=== PATIENT | female | born 1960 | race African-American/Black ===

== ENCOUNTER 2017-04-04 13:04 | Inpatient (IN) | payer BC, SELFPAY ==
[2017-04-04 14:12] LABS: #Basophils 0.1 thou/uL (0.0-0.2); #Eosinphils 0.1 thou/uL (0.0-0.7); #Lymphocytes 1.9 thou/uL (1.20-3.40); #Monocytes 0.5 thou/uL (0.11-0.59); #Neutrophils 4.5 thou/uL (1.40-6.50); %Basophils 1.4 % (0.0-1.0); %Eosinophils 0.9 % (0.0-10.0); %Monocytes 6.5 % (0.0-10.0); Hematocrit 40.4 % (36.0-47.0); Mean Platelet Volume 10.1 fL (7.4-10.4); Red Blood Cell (RBC) Count 4.81 mill/uL (4.20-5.40)
[2017-04-04 14:14] LABS: Bilirubin Negative (Negative); Blood, Urine Trace (Negative); Glucose, Urine (Dipstick) >=1000 mg/dL (Negative); Ketone, Urine 40 mg/dL (Negative); Nitrite Negative (Negative); Protein, Urine (Dipstick) Negative (Neg-Trace); Urobilinogen 0.2 mg/dL (0.2-1.0)
[2017-04-04] MEDS ORDERED: Ondansetron HCl/PF 4 MG/2 ML Vial ONE (14:16)
[2017-04-04] MEDS ORDERED: Insulin Regular 300 UNITS/3 ML VIAL ONE ×2 (14:16→16:16)
[2017-04-04 14:20] LABS: Bacteria/HPF None Seen HPF (None Seen); Hyaline Casts/LPF 0-3 HYALINE CAST LPF (0-3 Hyaline); Squamous Epithelial 0-3 HPF (0-3)
[2017-04-04 14:39] LABS: ALT (SGPT) 15 U/L (8-55); AST (SGOT) 10 U/L (5-34); Alkaline Phosphatase 116 U/L (40-150); Anion Gap 23 mmol/L (10-20); BUN (Urea Nitrogen) 23 mg/dL (9.8-20.1); Bilirubin, Total 0.6 mg/dL (0.2-1.2); Calc. Creatinine Clearance 0 mL/min (70-130); Calcium 9.9 mg/dL (7.8-10.44); Carbon Dioxide 14 mmol/L (22-29); Chloride 92 mmol/L (98-107); Estimated GFR-MDRD 25; Globulin 3.9 g/dL (2.4-3.5); Protein, Total 7.6 g/dL (6.0-8.3)
[2017-04-04 14:45] LABS: Troponin I 0.012 ng/mL (< 0.028)
--- NOTE | 2017-04-04 15:08 | RAD ---
TWO VIEW CHEST: COMPARISON: 12/29/14. INDICATION: Chest pain. FINDINGS: No consolidation, effusion, or pneumothorax. Cardiac silhouette is within normal limits of size. IMPRESSION: No focal consolidation. POS: [facility]
[2017-04-04] MEDS ORDERED: Insulin Regular 100 units/100 ml in NS IVPB SCH (16:15)
[2017-04-04] MEDS ORDERED: Dextrose 5 %-0.45 % NaCl 1,000 ML IV PRN (17:50)
[2017-04-04] MEDS ORDERED: Sodium Chloride 0.9% 1,000 ML IV PRN ×4 (17:50)
[2017-04-04] MEDS ORDERED: CCU Electrolyte Replacement 1 EACH IVPB ONE (17:50)
[2017-04-04] MEDS ORDERED: NS 0.9% w/ 20 MEQ KCL 1,000 ML IV PRN ×2 (17:50)
[2017-04-04] MEDS ORDERED: D5 1/2 NS w/20 mEq KCL 1,000 ML IV PRN (17:50)
[2017-04-04] MEDS ORDERED: Acetaminophen 325 MG TAB PO PRN (17:50)
--- NOTE | 2017-04-04 17:53 | HP ---
CHIEF COMPLAINT: Evaluation of right shoulder pain and high blood sugar. 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 She said that she injured her back and shoulder on her job and that is why she came to the hospital and the basic lab work showed that her sodium was 124 and glucose was 852 and creatinine was 2.45 and sh e is being admitted for further evaluation and treatment of uncontrolled diabetes. The patient catarino es any fever, chills, diarrhea, dysuria, nausea, vomiting, or abdominal pain. PAST MEDICAL HISTORY: Significant for diabetes, hypertension and chronic back pain. MEDICATION HISTORY: Please see MAR. PAST SURGICAL HISTORY: She says that she had some surgery longtime, but she is not very clear over that. Patient is a very poor historian. SOCIAL HISTORY: Denies tobacco, alcohol, or drug use. FAMILY HISTORY: Negative for diabetes and hypertension. ALLERGIES: No known drug allergies. REVIEW OF SYSTEMS: Significant for right shoulder pain, back pain, otherwise no fever, no chills, n o headache, no eye pain, no hearing loss, no joint disease, no cough, no chest pain. No diarrhea, d ysuria, or polyuria. No memory or mood changes. No neck pain. PHYSICAL EXAMINATION: VITAL SIGNS: Blood pressure is 128/91, respirations 18, afebrile, pulse is 94. GENERAL: Patient is lying in bed, in no apparent distress. HEENT: Atraumatic, normocephalic. Pupils equally round, react to light. Extraocular movements int act. Mucous membranes moist. NECK: Supple. No JVD. CHEST: Breath sounds heard. No rales or rhonchi. HEART: S1, S2. No murmurs, gallops, or rubs. ABDOMEN: Soft. EXTREMITIES: No cyanosis, clubbing or edema. Distal pulses present. NEUROLOGIC: Alert, awake, oriented. No cranial deficits. No sensorimotor deficits. Examination o f the right shoulder shows a limited range of motion because of pain. LABORATORY DATA: Sodium is 124, glucose is 850, bicarb is 14, creatinine is 2.45, BUN is 25. [facility], which was negative. Troponin is 0.012. UA shows 11-20 wbc cells, no nitrites, positive ketones and glucosuria. WBC count is 7, hemoglobin is 13. Chest x-ray is ne gative. ASSESSMENT AND PLAN: 1. Uncontrolled diabetes with mild metabolic acidosis with anion gap of 18. We will place the amairani ent in IMU, put the patient on insulin drip and IV fluids, and we will transition the patient to sli ding scale insulin as soon as possible. 2. Right shoulder pain. We will do shoulder x-rays and give pain medications for symptomatic contr ol. 3. Hyponatremia. We will check labs frequently and treat with IV fluids. 4. Acute renal failure on chronic kidney disease. We will give IV fluids most probably secondary t o dehydration secondary to polydipsia. The creatinine in 2014 was 1.2. 5. Obesity. 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 Abnormal urine with leukocyte count of 11 to 20 cells with no n itrite positive. We will culture the urine and will empirically treat with Rocephin. 6. Sequential compression devices for deep venous thrombosis prophylaxis. I will follow the labs a nd do the need for.
[2017-04-04] MEDS ORDERED: Potassium Chloride 40 MEQ in Premix Bag 1 BAG IVPB PRN (18:01)
[2017-04-04] MEDS ORDERED: Magnesium 2 GM/NS 0.9% 100 ML 2 GM in Premix Bag 1 BAG IVPB PRN (18:01)
[2017-04-04] MEDS ORDERED: CCU ELECTROLYTE REPLACEMENT PROTOCOL FS PRN (18:01)
[2017-04-04] MEDS ORDERED: Potassium Chloride 40 MEQ in Sodium Chloride 0.9% 250 ML 250 ML IVPB PRN (18:01)
[2017-04-04] MEDS ORDERED: Potassium Phosphate 9 MMOL in Sodium Chloride 0.9% 100 ML IVPB PRN (18:01)
[2017-04-04] MEDS ORDERED: Potassium Phosphate 12 MMOL in Sodium Chloride 0.9% 250 ML 250 ML IV PRN (18:01)
[2017-04-04] MEDS ORDERED: Potassium Phosphate 15 MMOL in Sodium Chloride 0.9% 250 ML 250 ML IV PRN (18:01)
[2017-04-04] MEDS ORDERED: Magnesium Oxide 400 MG TAB PO PRN ×2 (18:01)
[2017-04-04] MEDS ORDERED: Potassium Chloride 20 MEQ TAB PO PRN (18:01)
[2017-04-04 18:25] VITALS: BMI 31.0
[2017-04-04 18:35] LABS: Anion Gap 18 mmol/L (10-20); BUN (Urea Nitrogen) 19 mg/dL (9.8-20.1); Calc. Creatinine Clearance 45 mL/min (70-130); Calcium 9.5 mg/dL (7.8-10.44); Carbon Dioxide 15 mmol/L (22-29); Chloride 104 mmol/L (98-107); Estimated GFR-MDRD 35
[2017-04-04] MEDS: cefTRIAXone\\ROCEPHIN 1 GM in Sodium Chloride 0.9% 100 ML IVPB SCH (19:07)
[2017-04-04] MEDS: Sodium Chloride 0.9% 1,000 ML IV SCH (19:08)
--- NOTE | 2017-04-04 20:17 | RAD ---
RIGHT SHOULDER THREE VIEWS: 04/04/17 HISTORY: 57-year-old female with right shoulder pain. COMPARISON: 10/08/12 FINDINGS: AC joint and glenohumeral joint arthrosis changes. No acute fracture or dislocation of focal bone le neil. IMPRESSION: Degenerative changes right shoulder. No fracture or dislocation. POS: [facility]
[2017-04-04] MEDS: Insulin Regular 300 UNITS/3 ML VIAL SC PRN ×2 (20:22→23:19)
[2017-04-04] MEDS: Insulin Detemir 100 UNITS/ML 15 UNITS in Pre-Filled Syringe 1 EACH SC SCH (21:32)
[2017-04-04 22:09] LABS: Anion Gap 18 mmol/L (10-20); BUN (Urea Nitrogen) 20 mg/dL (9.8-20.1); Calc. Creatinine Clearance 43 mL/min (70-130); Calcium 9.1 mg/dL (7.8-10.44); Carbon Dioxide 15 mmol/L (22-29); Chloride 101 mmol/L (98-107); Estimated GFR-MDRD 33
[2017-04-04] MEDS: Docusate 100 MG CAP PO SCH (23:18)
[2017-04-05] MEDS: HYDROcodone/Acetaminophen 5/325 mg Tablet PO PRN ×4 (00:59→23:31)
[2017-04-05] MEDS: Insulin Regular 300 UNITS/3 ML VIAL SC PRN ×6 (02:59→14:45)
[2017-04-05 05:01] LABS: #Basophils 0.1 thou/uL (0.0-0.2); #Eosinphils 0.1 thou/uL (0.0-0.7); #Lymphocytes 2.3 thou/uL (1.20-3.40); #Monocytes 0.5 thou/uL (0.11-0.59); #Neutrophils 2.7 thou/uL (1.40-6.50); %Basophils 1.7 % (0.0-1.0); %Eosinophils 2.1 % (0.0-10.0); %Lymphocytes 40.7 % (21.0-51.0); Hematocrit 35.3 % (36.0-47.0); Mean Platelet Volume 9.3 fL (7.4-10.4); Red Blood Cell (RBC) Count 4.29 mill/uL (4.20-5.40); White Blood Cell (WBC) Count 5.7 thou/uL (4.8-10.8)
[2017-04-05 05:13] LABS: Anion Gap 12 mmol/L (10-20); BUN (Urea Nitrogen) 15 mg/dL (9.8-20.1); BUN/Creatinine Ratio 9.26; Calc. Creatinine Clearance 51 mL/min (70-130); Calcium 9.2 mg/dL (7.8-10.44); Carbon Dioxide 20 mmol/L (22-29); Chloride 105 mmol/L (98-107); Chloride 106 mmol/L (98-107); Estimated GFR-MDRD 40; Phosphorus 2.1 mg/dL (2.3-4.7)
[2017-04-05] MEDS: Sodium Chloride 0.9% 1,000 ML IV SCH ×3 (05:43→21:00)
[2017-04-05] MEDS: Docusate 100 MG CAP PO SCH ×2 (08:40→20:36)
[2017-04-05] MEDS ORDERED: Insulin Detemir 100 UNITS/ML 15 UNITS in Pre-Filled Syringe 1 EACH SC SCH (09:00)
--- NOTE | 2017-04-05 12:59 | PDOC.PN ---
- Subjective Encounter Start Date: 04/05/17 Encounter Start Time: 12:57 Patient seen and examined. No new complaints. No overnight events - Objective MAR Reviewed: Yes Vital Signs & Weight: Vital Signs (12 hours) Temp Pulse Resp BP Pulse Ox 04/05/17 11:46 97.7 F 83 16 126/69 94 L 04/05/17 08:00 98.3 F 87 18 97 04/05/17 07:55 98.3 F 87 18 130/82 96 04/05/17 03:00 98.3 F 89 18 129/77 99 Weight Weight 181 lb I&O: 04/04/17 04/05/17 04/06/17 06:59 06:59 06:59 Intake Total 2600 480 Output Total 1950 Balance 650 480 Result Diagrams: 04/05/17 04:45 04/05/17 04:45 Additional Labs: Accuchecks 04/05/17 04/05/17 04/05/17 12:01 09:07 05:32 POC Glucose 413 H 316 H 358 H 04/05/17 04/04/17 04/04/17 02:04 23:09 20:11 POC Glucose 367 H 472 H Greater than 550 H* 04/04/17 04/04/17 04/04/17 18:49 17:24 16:23 POC Glucose 464 H 507 H Greater than 550 H* Phys Exam - Physical Examination Constitutional: NAD HEENT: moist MMs Neck: no nodes Respiratory: no rales Cardiovascular: no significant murmur Gastrointestinal: non-tender Musculoskeletal: pulses present rt shoulder - limited rom Neurological: moves all 4 limbs Psychiatric: A&O x 3 Dx/Plan (1) Renal failure (ARF), acute on chronic Code(s): N17.9 - ACUTE KIDNEY FAILURE, UNSPECIFIED; N18.9 - CHRONIC KIDNEY DISEASE, UNSPECIFIED Status: Acute (2) DM (diabetes mellitus) type 2, uncontrolled, with ketoacidosis Code(s): E13.10 - OTH DIABETES MELLITUS WITH KETOACIDOSIS WITHOUT COMA Status : Acute (3) HTN (hypertension) Code(s): I10 - ESSENTIAL (PRIMARY) HYPERTENSION Status: Acute (4) Chronic pain Code(s): G89.29 - OTHER CHRONIC PAIN Status: Acute (5) Obesity (BMI 30.0-34.9) Code(s): E66.9 - OBESITY, UNSPECIFIED Status: Acute (6) Hyponatremia Code(s): E87.1 - HYPO-OSMOLALITY AND HYPONATREMIA Status: Acute - Plan * cont ivf * monitor bmp * start glipizide
[2017-04-05 14:15] LABS: Anion Gap 10 mmol/L (10-20); BUN (Urea Nitrogen) 12 mg/dL (9.8-20.1); Calc. Creatinine Clearance 56 mL/min (70-130); Calcium 8.7 mg/dL (7.8-10.44); Carbon Dioxide 20 mmol/L (22-29); Chloride 106 mmol/L (98-107); Estimated GFR-MDRD 45
[2017-04-05] MEDS: cefTRIAXone\\ROCEPHIN 1 GM in Sodium Chloride 0.9% 100 ML IVPB SCH (18:32)
[2017-04-05] MEDS: Insulin Detemir 100 UNITS/ML 15 UNITS in Pre-Filled Syringe 1 EACH SC SCH (21:00)
[2017-04-06] MEDS: Insulin Regular 300 UNITS/3 ML VIAL SC PRN ×5 (00:48→20:47)
[2017-04-06] MEDS: HYDROcodone/Acetaminophen 5/325 mg Tablet PO PRN ×4 (04:06→20:52)
[2017-04-06] MEDS: Sodium Chloride 0.9% 1,000 ML IV SCH (04:07)
[2017-04-06 04:43] LABS: Anion Gap 10 mmol/L (10-20); BUN (Urea Nitrogen) 11 mg/dL (9.8-20.1); Calc. Creatinine Clearance 63 mL/min (70-130); Calcium 9.1 mg/dL (7.8-10.44); Carbon Dioxide 19 mmol/L (22-29); Chloride 107 mmol/L (98-107); Estimated GFR-MDRD 51; Magnesium 1.7 mg/dL (1.6-2.6); Phosphorus 2.1 mg/dL (2.3-4.7)
[2017-04-06] MEDS ORDERED: Sodium Chloride 0.65% Nasal 44 ML BOT EA NARE PRN (07:16)
[2017-04-06] MEDS ORDERED: Mag-Al 1200 mg/1200 mg/30 ML UDCUP PO PRN (07:16)
[2017-04-06] MEDS ORDERED: Ondansetron HCl/PF 4 MG/2 ML Vial IVP PRN (07:16)
[2017-04-06] MEDS ORDERED: Milk Of Magnesia 30 ML UDCUP PO PRN (07:16)
[2017-04-06] MEDS ORDERED: Eucerin (Mineral Oil/Petrolatum,White) 30 gm Jar TOP PRN (07:16)
[2017-04-06] MEDS ORDERED: Temazepam 15 MG CAP PO PRN (07:16)
[2017-04-06] MEDS ORDERED: Ondansetron ODT 4 MG TAB PO PRN (07:16)
[2017-04-06] MEDS ORDERED: Loperamide HCl 2 MG CAP PO PRN (07:16)
[2017-04-06] MEDS ORDERED: Loratadine 10 MG TAB PO PRN (07:16)
[2017-04-06] MEDS ORDERED: Diabetic Tussin 200 MG/10 ML UDCUP PO PRN (07:16)
[2017-04-06] MEDS ORDERED: Artificial Tears 18 DROP/0.9 ML EA EYE PRN (07:16)
[2017-04-06 07:43] LABS: Hemoglobin A1c 12.2 % (4.0-6.0)
[2017-04-06] MEDS ORDERED: Potassium Phosphate 15 MMOL in Sodium Chloride 0.9% 250 ML 250 ML IVPB SCH (08:00)
[2017-04-06] MEDS: NS 0.9% w/ 20 MEQ KCL 1,000 ML/1,000 ML BAG IV SCH ×2 (08:10→20:44)
[2017-04-06] MEDS: Enoxaparin Sodium 40 MG/0.4 ML SYRINGE SC SCH (08:12)
[2017-04-06] MEDS: Docusate 100 MG CAP PO SCH ×2 (08:12→20:44)
[2017-04-06] MEDS: Famotidine 20 MG TAB PO SCH ×2 (08:13→20:45)
[2017-04-06] MEDS ORDERED: Insulin Detemir 100 UNITS/ML 25 UNITS in Pre-Filled Syringe 1 EACH SC SCH ×2 (09:00→21:00)
--- NOTE | 2017-04-06 11:45 | PDOC.PN ---
- Subjective Encounter Start Date: 04/06/17 Encounter Start Time: 08:00 -: old records requested/rev pt wants to give insulin which can be less expensive - Objective Resuscitation Status: Resuscitation Status FULL:Full Resuscitation MAR Reviewed: Yes Vital Signs & Weight: Vital Signs (12 hours) Temp Pulse Resp BP Pulse Ox 04/06/17 08:00 98.2 F 90 16 95 04/06/17 07:18 98.2 F 90 16 145/89 H 95 04/06/17 04:00 97.7 F 80 20 114/80 95 04/06/17 00:00 97.9 F 85 18 128/81 94 L Weight Weight 181 lb I&O: 04/05/17 04/06/17 04/07/17 06:59 06:59 06:59 Intake Total 2600 4250 400 Output Total 1950 900 Balance 650 3350 400 Result Diagrams: 04/05/17 04:45 04/06/17 04:01 Additional Labs: Accuchecks 04/06/17 04/05/17 04/05/17 00:42 14:42 12:01 POC Glucose 476 H 350 H 413 H Phys Exam - Physical Examination Constitutional: NAD HEENT: PERRLA, moist MMs, sclera anicteric Neck: no JVD, supple Respiratory: no wheezing, no rales, no rhonchi Cardiovascular: RRR, no significant murmur, no rub Gastrointestinal: soft, non-tender, no distention, positive bowel sounds Musculoskeletal: no edema, pulses present Neurological: non-focal, normal sensation, moves all 4 limbs Psychiatric: normal affect, A&O x 3 Skin: no rash, normal turgor Dx/Plan (1) DKA, type 2 Status: Acute Qualifiers: Diabetes mellitus complication detail: without coma (2) Hypokalemia Code(s): E87.6 - HYPOKALEMIA Status: Acute (3) Hyponatremia Code(s): E87.1 - HYPO-OSMOLALITY AND HYPONATREMIA Status: Acute (4) Hypophosphatemia Code(s): E83.39 - OTHER DISORDERS OF PHOSPHORUS METABOLISM Status: Acute (5) Renal failure (ARF), acute on chronic Code(s): N17.9 - ACUTE KIDNEY FAILURE, UNSPECIFIED; N18.9 - CHRONIC KIDNEY DISEASE, UNSPECIFIED Status: Acute (6) Chronic pain Code(s): G89.29 - OTHER CHRONIC PAIN Status: Chronic (7) DM (diabetes mellitus) type 2, uncontrolled, with ketoacidosis Code(s): E13.10 - OTH DIABETES MELLITUS WITH KETOACIDOSIS WITHOUT COMA Status : Chronic (8) HTN (hypertension) Code(s): I10 - ESSENTIAL (PRIMARY) HYPERTENSION Status: Chronic (9) Obesity (BMI 30.0-34.9) Code(s): E66.9 - OBESITY, UNSPECIFIED Status: Chronic - Plan cont current plan of care * will give potassium phosphate * continue IVF at reduced rate * will change to insulin 70/30 and today will adjust insulin dose * medication reviewed as below * medically stable with current treatment * symptomatic treatment * expecting discharge tomorrow * social work to assist medication. Review of Systems - Review of Systems ENT: negative: Ear Pain, Ear Discharge, Nose Pain, Nose Discharge, Nose Congestion, Mouth Pain, Mouth Swelling, Throat Pain, Throat Swelling, Other Respiratory: negative: Cough, Dry, Shortness of Breath, Hemoptysis, SOB with Excertion, Pleuritic Pain, Sputum, Wheezing Cardiovascular: negative: Chest Pain, Palpitations, Orthopnea, Paroxysmal Noc. Dyspnea, Edema, Light Headedness, Other Gastrointestinal: negative: Nausea, Vomiting, Abdominal Pain, Diarrhea, Constipation, Melena, Hematochezia, Other Genitourinary: negative: Dysuria, Frequency, Incontinence, Hematuria, Retention , Other Musculoskeletal: negative: Neck Pain, Shoulder Pain, Arm Pain, Back Pain, Hand Pain, Leg Pain, Foot Pain, Other - Medications/Allergies Allergies/Adverse Reactions: Allergies Allergy/AdvReac Type Severity Reaction Status Date / Time No Known Allergies Allergy Verified 10/28/14 03:03 Medications: Current Medications Acetaminophen (Tylenol) 650 mg PO Q4H PRN PRN Reason: Headache/Fever or Pain Hydrocodone Bitart/Acetaminophen ([place] 5/325) 1 tab PO Q4H PRN PRN Reason: Moderate Pain (4-6) Last Admin: 04/06/17 09:50 Dose: 1 tab Al Hydroxide/Mg Hydroxide (Maalox) 15 ml PO Q4H PRN PRN Reason: Heartburn or Indigestion Artificial Tears (Tears Naturale) 0 drop EA EYE PRN PRN PRN Reason: Dry Eyes Docusate Sodium (Colace) 100 mg PO BID NAYELI Last Admin: 04/06/17 08:12 Dose: Not Given Enoxaparin Sodium (Lovenox) 40 mg SC 0900 [facility] Last Admin: 04/06/17 08:12 Dose: 40 mg Famotidine (Pepcid) 20 mg PO BID [facility] Last Admin: 04/06/17 08:13 Dose: 20 mg Glipizide (Glucotrol Xl) 5 mg PO [facility] Last Admin: 04/06/17 08:11 Dose: 5 mg Guaifenesin (Robitussin Sf) 200 mg PO Q4H PRN PRN Reason: Cough Hydralazine HCl (Apresoline) 10 mg SLOW IVP Q4H PRN PRN Reason: Systolic BP > 180 Ceftriaxone Sodium 1 gm/ (Sodium Chloride) 100 mls @ 200 mls/hr IVPB Q24HR [facility] Stop: 04/07/17 18:01 Last Admin: 04/05/17 18:32 Dose: 100 mls Sodium Chloride (Normal Saline 0.9%) 1,000 mls @ 100 mls/hr IV .Q10H [facility] Stop: 04/06/17 18:31 Last Admin: 04/06/17 04:07 Dose: 1,000 mls Potassium Phosphate 15 mmol/ (Sodium Chloride) 255 mls @ 62.5 mls/hr IVPB 0800 [facility] Stop: 04/06/17 12:05 Last Admin: 04/06/17 09:50 Dose: 255 mls Potassium Chloride/Sodium Chloride (Ns 0.9% W/ 20 Meq Kcl) 1,000 ml in 1,000 mls @ 75 mls/hr IV .[id number] [facility] Last Admin: 04/06/17 08:10 Dose: 1,000 mls Insulin Human Isoph/Insulin Regular (Humulin 70/30) [facility] [place] [facility] [place] Human Isoph/Insulin Regular (Humulin 70/30) 25 units SC [facility] Insulin Human Regular (Humulin R) 0 units SC .AGGRESSIVE SLIDING PRN; Protocol PRN Reason: AGGRESSIVE SLIDING SCALE Last Admin: 04/06/17 05:16 Dose: 13 units Insulin Human Regular (Humulin R) 0 units SC .BEDTIME SLIDING SC PRN; Protocol PRN Reason: BEDTIME SLIDING SCALE Last Admin: 04/06/17 00:48 Dose: 5 units Loperamide HCl (Imodium) 2 mg PO PRN PRN PRN Reason: Diarrhea/Loose Stools Loratadine (Claritin) 10 mg PO DAILYPRN PRN PRN Reason: Sinus Symptoms Magnesium Hydroxide (Milk Of Magnesium) 30 ml PO DAILYPRN PRN PRN Reason: Constipation Mineral Oil/White Petrolatum (Eucerin Cream) 0 gm TOP BIDPRN PRN PRN Reason: Dry Skin Ondansetron HCl (Zofran Odt) 4 mg PO Q6H PRN PRN Reason: Nausea/Vomiting Ondansetron HCl (Zofran) 4 mg IVP Q6H PRN PRN Reason: Nausea/Vomiting Sodium Chloride ([place] Nasal [place] 0.65%) 0 ml EA NARE QIDPRN PRN PRN Reason: Nasal Congestion Temazepam (Restoril) 15 mg PO HSPRN PRN PRN Reason: Insomnia
[2017-04-06] MEDS: cefTRIAXone\\ROCEPHIN 1 GM in Sodium Chloride 0.9% 100 ML IVPB SCH (17:52)
[2017-04-06] MEDS ORDERED: Insulin NPH/Reg Insulin Hm 300 UNITS/3 ML VIAL SC SCH (21:00)
[2017-04-07 04:48] LABS: Anion Gap 11 mmol/L (10-20); BUN (Urea Nitrogen) 11 mg/dL (9.8-20.1); Calc. Creatinine Clearance 66 mL/min (70-130); Calcium 8.9 mg/dL (7.8-10.44); Carbon Dioxide 22 mmol/L (22-29); Chloride 107 mmol/L (98-107); Estimated GFR-MDRD 54; Magnesium 2.1 mg/dL (1.6-2.6); Phosphorus 2.3 mg/dL (2.3-4.7)
[2017-04-07] MEDS: NS 0.9% w/ 20 MEQ KCL 1,000 ML/1,000 ML BAG IV SCH ×2 (05:25→08:20)
[2017-04-07] MEDS: Insulin Regular 300 UNITS/3 ML VIAL SC PRN (05:27)
[2017-04-07 07:43] VITALS: BP 119/80; TEMP 98
[2017-04-07] MEDS: Enoxaparin Sodium 40 MG/0.4 ML SYRINGE SC SCH (08:13)
[2017-04-07] MEDS: Famotidine 20 MG TAB PO SCH (08:13)
[2017-04-07] MEDS: Docusate 100 MG CAP PO SCH (08:13)
[2017-04-07] MEDS ORDERED: Insulin NPH/Reg Insulin Hm 300 UNITS/3 ML VIAL SC SCH ×3 (09:00→21:00)
--- NOTE | 2017-04-07 10:28 | DIS ---
DATE OF ADMISSION: 04/04/2017 DATE OF DISCHARGE: 04/07/2017 PRIMARY CARE PHYSICIAN: Oriana Call admission. DISCHARGE DISPOSITION: Home. PRIMARY DISCHARGE DIAGNOSES: 1. Diabetes ketoacidosis, type 2. 2. Abnormal electrolytes with hypokalemia, hypophosphatemia, hyponatremia, corrected. 3. Acute on chronic kidney failure. SECONDARY DISCHARGE DIAGNOSES: 1. Diabetes type 2. 2. Obesity with BMI 31. 3. Hypertension. 4. Chronic pain disorder. PRIMARY PROCEDURE/OPERATION: None. RADIOLOGICAL INVESTIGATION: Chest x-ray was normal. Shoulder x-ray showed osteoarthritis. SIGNIFICANT LABORATORY DATA: Hemoglobin 12.0, creatinine 1.25. Electrolytes normal. TSH 1.43, LDL 113. Urinalysis: Leukocyte esterase small, serum ketone 0.57. Urine culture grew yeast. DISCHARGE MEDICATIONS: Aspirin 81 mg p.o. daily; Novolin 70/30, 35 units subcu b.i.d.; lovastatin 2 0 mg p.o. daily; glyburide 5 mg p.o. b.i.d.; metformin 500 mg p.o. b.i.d. CONTRAINDICATIONS: None. CODE STATUS: FULL CODE. INPATIENT CONSULTANTS: None. ALLERGIES: No known drug allergy. DISCHARGE PLAN: Post hospital, the patient will follow up with primary care physician in 1 week. HOSPITAL COURSE: A 57-year-old -[place] female with a history of diabetes type 2 who mainly came to emergency room for complaint of right shoulder pain and she was having very high blood suga r at home. This patient's right shoulder pain was consistent with musculoskeletal etiology and her shoulder x-ray showed osteoarthritis. Routine workup in the emergency room showed hyperglycemia associated with acute kidney failure, hypo natremia, hypokalemia, and hypophosphatemia. The patient also had DKA. All this problem was related with her noncompliance with the treatment. The patient was admitted in IMCU. She was treated with diabetic ketoacidosis protocol treatment and upon improvement, the amairani ent was transferred to medical floor. This patient cannot afford any expensive medication and that is why we tried to give her [employer] $4 prescription plan. All new medication prescription given to her pharmacy. The patient is seen and examined at bedside today. Today, we provided education about diet, diabetes as well as compliance with medication treatment. All questions answered to her. PHYSICAL EXAMINATION: VITAL SIGNS: Currently, temperature 98.0, pulse 80, respiratory rate 20, saturation 95%, blood pres sure 119/80, weight 181 pounds. GENERAL: The patient is currently alert, awake, no acute distress. HEAD: Normocephalic, atraumatic. LUNGS: Clear to auscultation without any rhonchi or rales. CARDIAC: S1, S2 regular without any murmur. ABDOMEN: Soft and benign without any tenderness. EXTREMITIES: No edema. NEUROLOGIC: Nonfocal examination. Overall, this patient is medically stable for discharge today.
== END 2017-04-07 10:56 | disposition home or self-care (01) | DRG 637 ==
LOC: ERS 13:04 → IMCU/EMU 16:14 → T4-A 04-05 16:05
PROVIDERS: ADMIT Internal Medicine; ATTEND Internal Medicine
DX: E11.65 Type 2 diabetes mellitus with hyperglycemia (principal); E11.10 Type 2 diabetes mellitus with ketoacidosis without coma; N17.9 Acute kidney failure, unspecified; E87.2 Acidosis; E87.1 Hypo-osmolality and hyponatremia; E83.39 Other disorders of phosphorus metabolism; G89.29 Other chronic pain; M54.9 Dorsalgia, unspecified; E86.0 Dehydration; E66.9 Obesity, unspecified; Z68.31 Body mass index [BMI] 31.0-31.9, adult; E87.6 Hypokalemia; Z79.82 Long term (current) use of aspirin; Z79.4 Long term (current) use of insulin; M19.011 Primary osteoarthritis, right shoulder; Z91.19 Patient's noncompliance with other medical treatment and regimen; E11.22 Type 2 diabetes mellitus with diabetic chronic kidney disease; I12.9 Hypertensive chronic kidney disease with stage 1 through stage 4 chronic kidney disease, or unspecified chronic kidney disease; N18.9 Chronic kidney disease, unspecified
CPT/HCPCS: 36415; 36416; 71020; 80053; 80061; 80069; 81003; 81015; 82010; 82553; 83036; 83735; 84443; 84484; 85025; 87086; 93005; 96361; 96365; 96375; 96376; G8978-GP-CH; G8979-GP-CH; G8980-GP-CH; J0696; J1650; J1815; J2270; J2405; J7050

== ENCOUNTER 2017-07-09 09:22 | Inpatient (IN) | payer SELFPAY ==
[2017-07-09 09:55] LABS: #Lymphocytes 1.6 thou/uL (1.20-3.40); #Monocytes 0.5 thou/uL (0.11-0.59); #Neutrophils 6.1 thou/uL (1.40-6.50); %Basophils 0.5 % (0.0-1.0); %Eosinophils 0.2 % (0.0-10.0); %Lymphocytes 19.2 % (21.0-51.0); %Monocytes 6.4 % (0.0-10.0); %Neutrophils 73.7 % (42.0-75.0); Hemoglobin 13.1 g/dL (12.0-16.0); Mean Corpuscular HGB CONC 33.3 g/dL (32.0-36.0); Mean Corpuscular Hemoglobin 28.8 pg (27.0-31.0); Mean Corpuscular Volume 86.6 fl (81.0-99.0); Mean Platelet Volume 9.9 fL (7.4-10.4); Platelet Count 179 thou/uL (130-400); RBC Distribution Width 12.5 % (11.5-14.5); Red Blood Cell (RBC) Count 4.56 mill/uL (4.20-5.40); White Blood Cell (WBC) Count 8.2 thou/uL (4.8-10.8)
[2017-07-09 10:21] LABS: ALT (SGPT) 11 U/L (8-55); AST (SGOT) 7 U/L (5-34); Albumin 3.9 g/dL (3.5-5.0); Alkaline Phosphatase 121 U/L (40-150); Anion Gap 26 mmol/L (10-20); BUN (Urea Nitrogen) 18 mg/dL (9.8-20.1); Bilirubin, Total 0.4 mg/dL (0.2-1.2); Calc. Creatinine Clearance 0 mL/min (70-130); Calcium 10.1 mg/dL (7.8-10.44); Chloride 100 mmol/L (98-107); Estimated GFR-MDRD 26; Potassium 4.5 mmol/L (3.5-5.1); Protein, Total 7.9 g/dL (6.0-8.3); Sodium 130 mmol/L (136-145)
[2017-07-09] MEDS ORDERED: Ondansetron HCl/PF 4 MG/2 ML Vial ONE (10:21)
[2017-07-09 10:23] LABS: Bilirubin Negative (Negative); Blood, Urine Trace (Negative); Clarity CLEAR (Clear); Glucose, Urine (Dipstick) >=1000 mg/dL (Negative); Leukocyte Small (Negative); Nitrite Negative (Negative); Protein, Urine (Dipstick) Trace mg/dL (Neg-Trace); Specific Gravity, Urine 1.027 (1.002-1.036); Urobilinogen 0.2 mg/dL (0.2-1.0); pH, Urine 5.5 (5.0-9.0)
[2017-07-09 10:27] LABS: Bacteria/HPF Rare-Few HPF (None Seen); Hyaline Casts/LPF 0-3 HYALINE CAST LPF (0-3 Hyaline); RBC/HPF 0-3 HPF (0-3); Squamous Epithelial 0-3 HPF (0-3)
[2017-07-09 10:28] LABS: Carbon Dioxide 9 mmol/L (22-29); Glucose 732 mg/dL (70-105)
[2017-07-09 10:39] LABS: Lactic Acid 1.5 mmol/L (0.5-2.2)
[2017-07-09] MEDS ORDERED: Morphine 4 MG/ML VIAL ONE (10:43)
[2017-07-09 11:19] LABS: Magnesium 2.1 mg/dL (1.6-2.6); Phosphorus 3.6 mg/dL (2.3-4.7)
[2017-07-09] MEDS ORDERED: Ondansetron HCl/PF 4 MG/2 ML Vial IVP PRN (12:59)
[2017-07-09] MEDS ORDERED: Zolpidem Tartrate 5 MG TAB PO PRN (12:59)
[2017-07-09] MEDS ORDERED: Acetaminophen 500 MG TAB ONE (13:02)
[2017-07-09] MEDS ORDERED: Sodium Chloride 0.9% 1,000 ML IV PRN ×4 (13:06)
[2017-07-09] MEDS ORDERED: Dextrose 5 %-0.45 % NaCl 1,000 ML IV PRN (13:06)
[2017-07-09] MEDS ORDERED: Dextrose 50% Abboject 50 ML SYRINGE SLOW IVP PRN (13:06)
[2017-07-09] MEDS ORDERED: NS 0.9% w/ 20 MEQ KCL 1,000 ML/1,000 ML BAG IV PRN ×2 (13:06)
[2017-07-09] MEDS ORDERED: Dextrose 5% in Water 1,000 ML IV PRN (13:06)
[2017-07-09] MEDS ORDERED: Insulin Regular 300 UNITS/3 ML VIAL IVP SCH (13:15)
[2017-07-09] MEDS ORDERED: ADD ELECTROLYTE REPLACEMENT SET TO PROFILE FS SCH (13:15)
--- NOTE | 2017-07-09 13:33 | HP ---
DATE OF ADMISSION: 07/09/2017 CHIEF COMPLAINT: Feeling weak and dizzy. HISTORY OF PRESENT ILLNESS: This is a 57-year-old female, who is being evaluated in the emergency ro om due to severe dizziness and significant elevation in blood sugars. Patient states that she appare ntly was taking insulin, but ran out of it and was unable to obtain any. The patient states that she started to feel significant back pain, weakness, dizziness, and presented to the ER and was found to be in DKA. The patient was treated appropriately in the emergency room. At this point in time, mague ng admitted to the hospital for insulin drip purposes and DKA protocol without treatment. The patien t states that this has happened to her a few times before when she misses her insulin. Otherwise, de nies any other associated complaints or illnesses. Denies any other aggravating or alleviating facto rs. ALLERGIES: No known drug allergies. PAST MEDICAL HISTORY: Inclusive of diabetes and hypertension PAST SURGICAL HISTORY: None. FAMILY HISTORY: Father had diabetes. Mother had hypertension. SOCIAL HISTORY: Denies alcohol, denies drugs, denies smoking. REVIEW OF SYSTEMS: Twelve-point review of systems performed. Pertinent positives in the HPI, otherw ise negative. HOME MEDICATIONS: Include lisinopril 10 mg daily, insulin 25 units twice a day, metformin 1000 mg ta blet daily. PHYSICAL EXAMINATION: VITAL SIGNS: Blood pressure 123/73, pulse of 99, respiratory rate of 20, O2 saturation 98, temperatu re of 98. GENERAL: The patient appears to be very weak and in mild distress. HEENT: Pupils equal, round, and reactive to light and accommodation. Normocephalic, atraumatic head . Room does smell fruity odor similar to acetone. Oral cavity appears dry and pink. NECK: Supple, nontender, mobile thyroid. PULMONARY EXAM: Clear to auscultation bilaterally, aerating well. CARDIOVASCULAR EXAM: Regular rate and rhythm. S1 and S2. No murmurs, rubs, or gallops appreciated. ABDOMINAL EXAM: Rotund, positive bowel sounds, soft, nontender. EXTREMITIES: A 2+ peripheral pulses, and moving all extremities. SKIN EXAM: Appears dry. NEUROLOGIC: Alert and oriented x3, following all commands, moving all extremities. LABORATORY WORK: CBC normal. BMP, sodium 130, potassium 4.5, chloride 100, anion gap of 26, creatin ine of 2.32, and a glucose of 732. Urinalysis reveals glucose 1000 and beta hydroxybutyrate is 9.3 m illimoles per liter. ASSESSMENT AND PLAN: 1. Diabetic ketoacidosis secondary to missed insulin dosing. 2. Hypertension. 3. Obesity. 4. Hyperlipidemia. 5. Anion gap acidosis. 6. Acute kidney injury on chronic kidney disease. At this point in time, we will admit the patient to the hospital, initiate insulin, diabetic ketoacidosis protocol. 7. Acute kidney injury, likely secondary to dehydration. We will monitor for any issues and conditi on. 8. Pseudohyponatremia present. Sodium levels appropriate when corrected for high glucose levels. 9. Acidosis, likely to be resolved after resolution of diabetic ketoacidosis. At this point in time, we will admit the patient and monitor closely. Diabetic ketoacidosis protocol initiated appropriately in the ER and we will continue. Obtain blood cultures. P.r.n. medications as well. Case and plan discussed with the patient at length. She understands and agrees with this p idalia.
[2017-07-09 15:19] LABS: Osmolality, Serum 336 mOsm/kg (280-295)
[2017-07-09 15:54] LABS: Anion Gap 21 mmol/L (10-20); BUN (Urea Nitrogen) 13 mg/dL (9.8-20.1); Calc. Creatinine Clearance 0 mL/min (70-130); Calcium 9.3 mg/dL (7.8-10.44); Chloride 114 mmol/L (98-107); Estimated GFR-MDRD 38; Glucose 392 mg/dL (70-105); Potassium 4.8 mmol/L (3.5-5.1); Sodium 139 mmol/L (136-145)
[2017-07-09 15:59] LABS: CO2 Tension 32.4 mmHg (35.0-45.0); Calcium, Ionized 1.4 mmol/L (1.12-1.30); Hematocrit-ABG 36.6 % (36.0-47.0); Hemoglobin (Hb) 11.8 g/dL (12.0-16.0); O2 Tension (PaO2) 98.6 mmHg (80.0-100.0)
[2017-07-09 16:08] LABS: Carbon Dioxide 9 mmol/L (22-29)
[2017-07-09 16:12] LABS: Analyzer IN Cardio ER; Puncture Site RRA; pH, Arterial 7.19 (7.35-7.45)
[2017-07-09] MEDS ORDERED: Sodium Bicarb 50 MEQ/50 ML Abboject 8.4% SYRINGE ONE (16:17)
[2017-07-09] MEDS ORDERED: Sodium Bicarb 50 MEQ/50 ML Abboject 8.4% SYRINGE IVP SCH (16:45)
[2017-07-09 17:10] VITALS: BMI 32.4
[2017-07-09 20:34] LABS: Anion Gap 13 mmol/L (10-20); BUN (Urea Nitrogen) 10 mg/dL (9.8-20.1); Calc. Creatinine Clearance 57 mL/min (70-130); Calcium 9.5 mg/dL (7.8-10.44); Carbon Dioxide 19 mmol/L (22-29); Chloride 115 mmol/L (98-107); Estimated GFR-MDRD 43; Glucose 222 mg/dL (70-105); Potassium 3.6 mmol/L (3.5-5.1); Sodium 143 mmol/L (136-145)
[2017-07-09] MEDS ORDERED: Lovastatin 20 MG TAB PO SCH (21:00)
[2017-07-09] MEDS ORDERED: CCU ELECTROLYTE REPLACEMENT PROTOCOL FS PRN (21:08)
[2017-07-09] MEDS ORDERED: Potassium Chloride 40 MEQ in Premix Bag 1 BAG IVPB PRN (21:08)
[2017-07-09] MEDS ORDERED: Potassium Phosphate 12 MMOL in Sodium Chloride 0.9% 250 ML 250 ML IV PRN (21:08)
[2017-07-09] MEDS ORDERED: Potassium Phosphate 9 MMOL in Sodium Chloride 0.9% 100 ML IVPB PRN (21:08)
[2017-07-09] MEDS ORDERED: Potassium Chloride 20 MEQ TAB PO PRN (21:08)
[2017-07-09] MEDS ORDERED: Potassium Chloride 40 MEQ in Sodium Chloride 0.9% 250 ML 250 ML IVPB PRN (21:08)
[2017-07-09] MEDS ORDERED: Potassium Phosphate 15 MMOL in Sodium Chloride 0.9% 250 ML 250 ML IV PRN (21:08)
[2017-07-09] MEDS ORDERED: Magnesium 2 GM/NS 0.9% 100 ML 2 GM in Premix Bag 1 BAG IVPB PRN (21:08)
[2017-07-09] MEDS ORDERED: Magnesium Oxide 400 MG TAB PO PRN ×2 (21:08)
[2017-07-09 23:26] LABS: Anion Gap 14 mmol/L (10-20); BUN (Urea Nitrogen) 9 mg/dL (9.8-20.1); Calc. Creatinine Clearance 53 mL/min (70-130); Calcium 9.6 mg/dL (7.8-10.44); Carbon Dioxide 19 mmol/L (22-29); Chloride 112 mmol/L (98-107); Estimated GFR-MDRD 40; Glucose 271 mg/dL (70-105); Potassium 3.5 mmol/L (3.5-5.1); Sodium 141 mmol/L (136-145)
[2017-07-10] MEDS: Acetaminophen 500 MG TAB PO PRN ×2 (00:10→04:20)
[2017-07-10] MEDS: D5 1/2 NS w/20 mEq KCL 1,000 ML IV PRN ×4 (00:11→12:34)
[2017-07-10 06:05] LABS: Anion Gap 19 mmol/L (10-20); BUN (Urea Nitrogen) 7 mg/dL (9.8-20.1); Calc. Creatinine Clearance 56 mL/min (70-130); Calcium 9.8 mg/dL (7.8-10.44); Carbon Dioxide 12 mmol/L (22-29); Chloride 110 mmol/L (98-107); Estimated GFR-MDRD 42; Glucose 379 mg/dL (70-105); Potassium 4.2 mmol/L (3.5-5.1); Sodium 137 mmol/L (136-145)
[2017-07-10] MEDS ORDERED: Aspirin 81 mg Enteric Coated Tablet PO SCH (09:00)
[2017-07-10] MEDS ORDERED: FLU VACC QS2017-18 36 mo. & older 0.5 ML SYRINGE IM ONE (09:00)
[2017-07-10] MEDS ORDERED: Enoxaparin Sodium 30 MG/0.3 ML SYRINGE SC SCH (09:00)
[2017-07-10 11:55] LABS: Phosphorus 1.5 mg/dL (2.3-4.7)
[2017-07-10] MEDS ORDERED: Artificial Tears 18 DROP/0.9 ML EA EYE PRN (12:37)
[2017-07-10] MEDS ORDERED: Acetaminophen 325 MG TAB PO PRN (12:37)
[2017-07-10] MEDS ORDERED: Diabetic Tussin 200 MG/10 ML UDCUP PO PRN (12:37)
[2017-07-10] MEDS ORDERED: Dextrose 5% in Water 1,000 ML IV PRN (12:37)
[2017-07-10] MEDS ORDERED: HYDROcodone/Acetaminophen 5/325 mg Tablet PO PRN (12:37)
[2017-07-10] MEDS ORDERED: Sodium Chloride 0.65% Nasal 44 ML BOT EA NARE PRN (12:37)
[2017-07-10] MEDS ORDERED: Ondansetron ODT 4 MG TAB PO PRN (12:37)
[2017-07-10] MEDS ORDERED: Ondansetron HCl/PF 4 MG/2 ML Vial IVP PRN (12:37)
[2017-07-10] MEDS ORDERED: Eucerin (Mineral Oil/Petrolatum,White) 30 gm Jar TOP PRN (12:37)
[2017-07-10] MEDS ORDERED: Insulin Regular 300 UNITS/3 ML VIAL SC PRN (12:37)
[2017-07-10] MEDS ORDERED: Senokot 8.6 MG TAB PO PRN (12:37)
[2017-07-10] MEDS ORDERED: Zolpidem Tartrate 5 MG TAB PO PRN (12:37)
[2017-07-10] MEDS ORDERED: Chloraseptic Spray 180 ml Bottle PO PRN (12:37)
[2017-07-10] MEDS ORDERED: Bisacodyl 10 MG SUPP PR PRN (12:37)
[2017-07-10] MEDS ORDERED: Loperamide HCl 2 MG CAP PO PRN (12:37)
[2017-07-10] MEDS ORDERED: Nitroglycerin 0.4 MG TAB (25 Tab Bottle) SL PRN (12:37)
[2017-07-10] MEDS ORDERED: Milk Of Magnesia 30 ML UDCUP PO PRN (12:37)
[2017-07-10] MEDS ORDERED: Mag-Al 1200 mg/1200 mg/30 ML UDCUP PO PRN (12:37)
[2017-07-10] MEDS ORDERED: hydrALAZINE 20 MG/ML VIAL SLOW IVP PRN (12:37)
[2017-07-10] MEDS ORDERED: Dextrose 50% Abboject 50 ML SYRINGE SLOW IVP PRN (12:37)
[2017-07-10] MEDS ORDERED: Loratadine 10 MG TAB PO PRN (12:37)
--- NOTE | 2017-07-10 12:40 | PDOC.PN ---
- Subjective Encounter Start Date: 07/10/17 Encounter Start Time: 09:00 -: old records requested/rev Patient seen and examined. No new complaints. No overnight events - Objective MAR Reviewed: Yes Vital Signs & Weight: Vital Signs (12 hours) Temp Pulse Resp BP BP Pulse Ox 07/10/17 11:17 98.3 F 86 18 143/96 H 98 07/10/17 08:20 97.0 F L 85 18 98 07/10/17 07:46 97.0 F L 85 18 147/98 H 98 07/10/17 03:30 97.8 F 85 18 147/85 H 100 I&O: 07/09/17 07/10/17 07/11/17 06:59 06:59 06:59 Intake Total 3100 Balance 3100 Result Diagrams: 07/09/17 09:46 07/10/17 04:37 Additional Labs: Accuchecks 07/10/17 07/10/17 07/10/17 11:16 10:05 09:09 POC Glucose 249 H 273 H 275 H 07/10/17 07/10/17 07/10/17 08:22 07:07 06:04 POC Glucose 300 H 309 H 333 H 07/10/17 07/10/17 07/10/17 05:04 04:05 03:06 POC Glucose 325 H 383 H 277 H 07/10/17 07/10/17 07/10/17 02:05 01:12 00:14 POC Glucose 275 H 273 H 263 H 07/09/17 07/09/17 07/09/17 23:09 21:58 20:46 POC Glucose 254 H 238 H 218 H 07/09/17 07/09/17 07/09/17 19:32 18:22 17:06 POC Glucose 206 H 271 H 308 H 07/09/17 07/09/17 07/09/17 16:03 15:02 13:43 POC Glucose 330 H 401 H 433 H 07/09/17 12:53 POC Glucose 519 H EKG Reviewed by me: Yes Phys Exam - Physical Examination Constitutional: NAD HEENT: PERRLA, moist MMs, sclera anicteric Neck: no JVD, supple Respiratory: no wheezing, no rales, no rhonchi Cardiovascular: RRR, no significant murmur, no rub Gastrointestinal: soft, non-tender, no distention, positive bowel sounds Musculoskeletal: no edema, pulses present Neurological: non-focal, normal sensation, moves all 4 limbs Lymphatic: no nodes Psychiatric: normal affect, A&O x 3 Skin: no rash, normal turgor Dx/Plan (1) Acute worsening of stage 3 chronic kidney disease Code(s): N18.3 - CHRONIC KIDNEY DISEASE, STAGE 3 (MODERATE) Status: Acute (2) DKA, type 2 Status: Acute (3) Hyponatremia Code(s): E87.1 - HYPO-OSMOLALITY AND HYPONATREMIA Status: Acute (4) Chronic pain Code(s): G89.29 - OTHER CHRONIC PAIN Status: Chronic (5) HTN (hypertension) Code(s): I10 - ESSENTIAL (PRIMARY) HYPERTENSION Status: Chronic (6) Obesity (BMI 30.0-34.9) Code(s): E66.9 - OBESITY, UNSPECIFIED Status: Chronic - Plan cont current plan of care * now will start her home meds and home dos eof insulin * gradually will turn off insulin drip * start diet * repeat labs tomorrow * medication reviewed as below * symptomatic treatment * transfer to medical. Review of Systems - Review of Systems ENT: negative: Ear Pain, Ear Discharge, Nose Pain, Nose Discharge, Nose Congestion, Mouth Pain, Mouth Swelling, Throat Pain, Throat Swelling, Other Respiratory: negative: Cough, Dry, Shortness of Breath, Hemoptysis, SOB with Excertion, Pleuritic Pain, Sputum, Wheezing Cardiovascular: negative: chest pain, palpitations, orthopnea, paroxysmal nocturnal dyspnea, edema, light headedness, other Gastrointestinal: negative: Nausea, Vomiting, Abdominal Pain, Diarrhea, Constipation, Melena, Hematochezia, Other Genitourinary: negative: Dysuria, Frequency, Incontinence, Hematuria, Retention , Other Musculoskeletal: negative: Neck Pain, Shoulder Pain, Arm Pain, Back Pain, Hand Pain, Leg Pain, Foot Pain, Other Skin: negative: Rash, Lesions, Mars, Bruising, Other - Medications/Allergies Allergies/Adverse Reactions: Allergies Allergy/AdvReac Type Severity Reaction Status Date / Time No Known Allergies Allergy Verified 10/28/14 03:03 Medications: Current Medications Acetaminophen (Tylenol) 650 mg PO Q4H PRN PRN Reason: Headache/Fever or Mild Pain Hydrocodone Bitart/Acetaminophen ([place] 5/325) 1 tab PO Q4H PRN PRN Reason: Moderate Pain (4-6) Al Hydroxide/Mg Hydroxide (Maalox) 15 ml PO Q4H PRN PRN Reason: Heartburn or Indigestion Artificial Tears (Tears Naturale) 0 drop EA EYE PRN PRN PRN Reason: Dry Eyes Bisacodyl (Dulcolax) 10 mg GA DAILYPRN PRN PRN Reason: Constipation Dextrose/Water (Dextrose 50%) 25 gm SLOW IVP PRN PRN PRN Reason: Hypoglycemia Famotidine (Pepcid) 20 mg PO BID [facility] Glucagon (Glucagon) 1 mg IM PRN PRN PRN Reason: Hypoglycemia Glyburide (Diabeta) 5 mg PO BID-AC [facility] Guaifenesin (Robitussin Sf) 200 mg PO Q4H PRN PRN Reason: Cough Hydralazine HCl (Apresoline) 10 mg SLOW IVP Q4H PRN PRN Reason: Systolic BP > 180 Dextrose/Water (D5w) 1,000 mls @ 0 mls/hr IV .Q0M PRN; As Directed PRN Reason: Hypoglycemia Insulin Human Isoph/Insulin Regular (Humulin 70/30) 35 units SC BID NAYELI Insulin Human Regular (Humulin R) 0 units SC .AGGRESSIVE SLIDING PRN PRN Reason: Aggressive Sliding Scale Insulin Human Regular (Humulin R) 0 units SC .BEDTIME SLIDING SC PRN PRN Reason: Bedtime Correctional Scale Loperamide HCl (Imodium) 2 mg PO PRN PRN PRN Reason: Diarrhea/Loose Stools Loratadine (Claritin) 10 mg PO DAILYPRN PRN PRN Reason: Sinus Symptoms Magnesium Hydroxide (Milk Of Magnesium) 30 ml PO DAILYPRN PRN PRN Reason: Constipation Metformin HCl (Glucophage) 500 mg PO BID-WM [facility] Mineral Oil/White Petrolatum (Eucerin Cream) 0 gm TOP BIDPRN PRN PRN Reason: Dry Skin Nitroglycerin (Nitrostat) 0.4 mg SL Q5MIN PRN PRN Reason: Chest Pain Ondansetron HCl (Zofran Odt) 4 mg PO Q6H PRN PRN Reason: Nausea/Vomiting Ondansetron HCl (Zofran) 4 mg IVP Q6H PRN PRN Reason: Nausea/Vomiting Phenol (Chloraseptic [place] 180 Ml Bot) 0 ml PO PRN PRN PRN Reason: Sore Throat Senna (Senokot) 2 tab PO HSPRN PRN PRN Reason: Constipation Sodium Chloride ([place] Nasal [place] 0.65%) 0 ml EA NARE QIDPRN PRN PRN Reason: Nasal Congestion Zolpidem Tartrate (Ambien) 5 mg PO HSPRN PRN PRN Reason: Insomnia
[2017-07-10] MEDS: glyBURIDE 5 MG TAB PO SCH (16:17)
[2017-07-10] MEDS: metFORMIN 500 MG TAB PO SCH (16:17)
[2017-07-10] MEDS ORDERED: glyBURIDE 5 MG TAB PO SCH (17:00)
[2017-07-10] MEDS ORDERED: metFORMIN 500 MG TAB PO SCH (17:00)
[2017-07-10] MEDS: Insulin Regular 300 UNITS/3 ML VIAL SC PRN (17:22)
[2017-07-10] MEDS ORDERED: Insulin NPH/Reg Insulin Hm 300 UNITS/3 ML VIAL SC SCH (21:00)
[2017-07-10] MEDS: Insulin NPH/Reg Insulin Hm 300 UNITS/3 ML VIAL SC SCH (21:52)
[2017-07-10] MEDS: Famotidine 20 MG TAB PO SCH (21:53)
[2017-07-11] MEDS: Insulin Regular 300 UNITS/3 ML VIAL SC PRN (06:08)
[2017-07-11 06:40] LABS: #Basophils 0.1 thou/uL (0.0-0.2); #Eosinphils 0.1 thou/uL (0.0-0.7); #Lymphocytes 2.6 thou/uL (1.20-3.40); #Monocytes 0.6 thou/uL (0.11-0.59); #Neutrophils 4.1 thou/uL (1.40-6.50); %Basophils 1.3 % (0.0-1.0); %Eosinophils 0.9 % (0.0-10.0); %Lymphocytes 34.9 % (21.0-51.0); %Monocytes 8.1 % (0.0-10.0); %Neutrophils 54.9 % (42.0-75.0); Hemoglobin 12.2 g/dL (12.0-16.0); Mean Corpuscular HGB CONC 33.4 g/dL (32.0-36.0); Mean Corpuscular Hemoglobin 28.2 pg (27.0-31.0); Mean Corpuscular Volume 84.7 fl (81.0-99.0); Mean Platelet Volume 9.7 fL (7.4-10.4); Platelet Count 159 thou/uL (130-400); RBC Distribution Width 12.6 % (11.5-14.5); Red Blood Cell (RBC) Count 4.32 mill/uL (4.20-5.40); White Blood Cell (WBC) Count 7.5 thou/uL (4.8-10.8)
[2017-07-11 06:48] LABS: Anion Gap 11 mmol/L (10-20); BUN (Urea Nitrogen) 5 mg/dL (9.8-20.1); Calc. Creatinine Clearance 61 mL/min (70-130); Calcium 9.7 mg/dL (7.8-10.44); Carbon Dioxide 20 mmol/L (22-29); Chloride 110 mmol/L (98-107); Estimated GFR-MDRD 47; Glucose 138 mg/dL (70-105); Magnesium 1.3 mg/dL (1.6-2.6); Potassium 3.2 mmol/L (3.5-5.1); Sodium 138 mmol/L (136-145)
[2017-07-11 06:51] LABS: Phosphorus 1.8 mg/dL (2.3-4.7)
[2017-07-11] MEDS ORDERED: Potassium Phosphate 30 MMOL in Sodium Chloride 0.9% 500 ML IVPB SCH (07:30)
[2017-07-11] MEDS ORDERED: Magnesium Sulfate 4 GM in Sodium Chloride 0.9% 250 ML 250 ML IVPB SCH (07:30)
[2017-07-11] MEDS ORDERED: Sodium Chloride 0.9% 10 ML ONE (08:18)
[2017-07-11] MEDS: metFORMIN 500 MG TAB PO SCH ×2 (08:19→17:18)
[2017-07-11] MEDS: glyBURIDE 5 MG TAB PO SCH ×2 (08:19→17:18)
[2017-07-11] MEDS: Famotidine 20 MG TAB PO SCH (08:19)
[2017-07-11] MEDS: Insulin NPH/Reg Insulin Hm 300 UNITS/3 ML VIAL SC SCH (09:15)
--- NOTE | 2017-07-11 10:01 | PDOC.PN ---
- Subjective Encounter Start Date: 07/11/17 Encounter Start Time: 06:30 Patient seen and examined. No new complaints. No overnight events - Objective MAR Reviewed: Yes Vital Signs & Weight: Vital Signs (12 hours) Temp Pulse Resp BP Pulse Ox 07/11/17 07:42 97.0 F L 88 20 07/11/17 07:33 97.0 F L 88 20 119/76 97 07/11/17 04:00 98.6 F 86 18 114/76 95 07/10/17 23:27 98.0 F 94 16 122/74 95 I&O: 07/10/17 07/11/17 07/12/17 06:59 06:59 06:59 Intake Total 3100 Balance 3100 Result Diagrams: 07/11/17 06:02 07/11/17 06:02 Additional Labs: Accuchecks 07/11/17 07/10/17 07/10/17 06:03 21:50 16:13 POC Glucose 163 H 296 H 191 H 07/10/17 07/10/17 07/10/17 12:31 11:16 10:05 POC Glucose 260 H 249 H 273 H Phys Exam - Physical Examination Constitutional: NAD HEENT: PERRLA, moist MMs, sclera anicteric Neck: no JVD, supple Respiratory: no wheezing, no rales, no rhonchi Cardiovascular: RRR, no significant murmur, no rub Gastrointestinal: soft, non-tender, no distention, positive bowel sounds Musculoskeletal: no edema, pulses present Neurological: non-focal, normal sensation, moves all 4 limbs Lymphatic: no nodes Psychiatric: normal affect, A&O x 3 Skin: no rash, normal turgor Dx/Plan (1) Acute worsening of stage 3 chronic kidney disease Code(s): N18.3 - CHRONIC KIDNEY DISEASE, STAGE 3 (MODERATE) Status: Acute (2) DKA, type 2 Status: Acute (3) Hyponatremia Code(s): E87.1 - HYPO-OSMOLALITY AND HYPONATREMIA Status: Acute (4) Chronic pain Code(s): G89.29 - OTHER CHRONIC PAIN Status: Chronic (5) HTN (hypertension) Code(s): I10 - ESSENTIAL (PRIMARY) HYPERTENSION Status: Chronic (6) Obesity (BMI 30.0-34.9) Code(s): E66.9 - OBESITY, UNSPECIFIED Status: Chronic - Plan cont current plan of care * medication reviewed as below * medically stable for discharge * see discharge summery * outpt follow up * replace electrolytes and recheck later today and then discharge. Review of Systems - Review of Systems ENT: negative: Ear Pain, Ear Discharge, Nose Pain, Nose Discharge, Nose Congestion, Mouth Pain, Mouth Swelling, Throat Pain, Throat Swelling, Other Respiratory: negative: Cough, Dry, Shortness of Breath, Hemoptysis, SOB with Excertion, Pleuritic Pain, Sputum, Wheezing Cardiovascular: negative: chest pain, palpitations, orthopnea, paroxysmal nocturnal dyspnea, edema, light headedness, other Gastrointestinal: negative: Nausea, Vomiting, Abdominal Pain, Diarrhea, Constipation, Melena, Hematochezia, Other Genitourinary: negative: Dysuria, Frequency, Incontinence, Hematuria, Retention , Other Musculoskeletal: negative: Neck Pain, Shoulder Pain, Arm Pain, Back Pain, Hand Pain, Leg Pain, Foot Pain, Other Skin: negative: Rash, Lesions, Mars, Bruising, Other - Medications/Allergies Allergies/Adverse Reactions: Allergies Allergy/AdvReac Type Severity Reaction Status Date / Time No Known Allergies Allergy Verified 07/10/17 15:28 Medications: Current Medications Acetaminophen (Tylenol) 650 mg PO Q4H PRN PRN Reason: Headache/Fever or Mild Pain Hydrocodone Bitart/Acetaminophen ([place] 5/325) 1 tab PO Q4H PRN PRN Reason: Moderate Pain (4-6) Al Hydroxide/Mg Hydroxide (Maalox) 15 ml PO Q4H PRN PRN Reason: Heartburn or Indigestion Artificial Tears (Tears Naturale) 0 drop EA EYE PRN PRN PRN Reason: Dry Eyes Bisacodyl (Dulcolax) 10 mg FL DAILYPRN PRN PRN Reason: Constipation Dextrose/Water (Dextrose 50%) 25 gm SLOW IVP PRN PRN PRN Reason: Hypoglycemia Famotidine (Pepcid) 20 mg PO BID [facility] Last Admin: 07/11/17 08:19 Dose: 20 mg Glucagon (Glucagon) 1 mg IM PRN PRN PRN Reason: Hypoglycemia Glyburide (Diabeta) 5 mg PO BID[facility] Last Admin: 07/11/17 08:19 Dose: 5 mg Guaifenesin (Robitussin Sf) 200 mg PO Q4H PRN PRN Reason: Cough Hydralazine HCl (Apresoline) 10 mg SLOW IVP Q4H PRN PRN Reason: Systolic BP > 180 Dextrose/Water (D5w) 1,000 mls @ 0 mls/hr IV .Q0M PRN; As Directed PRN Reason: Hypoglycemia Magnesium Sulfate 4 gm/ Sodium (Chloride) 258 mls @ 86 mls/hr IVPB 0730 [facility] Stop: 07/11/17 10:29 Last Admin: 07/11/17 08:27 Dose: 258 mls Potassium Phosphate 30 mmol/ (Sodium Chloride) 510 mls @ 83.3 mls/hr IVPB 0730 [facility] Stop: 07/11/17 13:38 Last Admin: 07/11/17 08:26 Dose: 510 mls Insulin Human Isoph/Insulin Regular (Humulin 70/30) 35 units SC BID [facility] Last Admin: 07/11/17 09:15 Dose: 35 units Insulin Human Regular (Humulin R) 0 units SC .AGGRESSIVE SLIDING PRN PRN Reason: Aggressive Sliding Scale Last Admin: 07/11/17 06:08 Dose: 3 unit Insulin Human Regular (Humulin R) 0 units SC .BEDTIME SLIDING SC PRN PRN Reason: Bedtime Correctional Scale Last Admin: 07/10/17 21:53 Dose: 3 units Loperamide HCl (Imodium) 2 mg PO PRN PRN PRN Reason: Diarrhea/Loose Stools Loratadine (Claritin) 10 mg PO DAILYPRN PRN PRN Reason: Sinus Symptoms Magnesium Hydroxide (Milk Of Magnesium) 30 ml PO DAILYPRN PRN PRN Reason: Constipation Metformin HCl (Glucophage) 500 mg PO BID-[facility] Last Admin: 07/11/17 08:19 Dose: 500 mg Mineral Oil/White Petrolatum (Eucerin Cream) 0 gm TOP BIDPRN PRN PRN Reason: Dry Skin Nitroglycerin (Nitrostat) 0.4 mg SL Q5MIN PRN PRN Reason: Chest Pain Ondansetron HCl (Zofran Odt) 4 mg PO Q6H PRN PRN Reason: Nausea/Vomiting Ondansetron HCl (Zofran) 4 mg IVP Q6H PRN PRN Reason: Nausea/Vomiting Phenol (Chloraseptic [place] 180 Ml Bot) 0 ml PO PRN PRN PRN Reason: Sore Throat Senna (Senokot) 2 tab PO HSPRN PRN PRN Reason: Constipation Sodium Chloride ([place] Nasal [place] 0.65%) 0 ml EA NARE QIDPRN PRN PRN Reason: Nasal Congestion Zolpidem Tartrate (Ambien) 5 mg PO HSPRN PRN PRN Reason: Insomnia
--- NOTE | 2017-07-11 11:12 | DIS ---
DATE OF ADMISSION: 07/09/2017 DATE OF DISCHARGE: 07/11/2017 PRIMARY CARE PHYSICIAN: Oriana call admission. DISCHARGE DISPOSITION: Home. PRIMARY DISCHARGE DIAGNOSES: 1. Diabetes ketoacidosis, type 2. 2. Acute on chronic kidney failure, baseline chronic kidney disease stage 3. 3. Hypokalemia. 4. Hypomagnesemia. 5. Hypophosphatemia. 6. Pseudohyponatremia. SECONDARY DISCHARGE DIAGNOSES: Obesity with body mass index 32, hypertension, and chronic pain disor jill. PRIMARY PROCEDURE/OPERATION: None. RADIOLOGICAL INVESTIGATION: None. SIGNIFICANT LABORATORY DATA: Hemoglobin 12.2, creatinine 1.41, potassium 3.2. Phosphorous 1.8, magn esium 1.3. Urinalysis unremarkable. Ketones 0.85. Blood cultures negative. DISCHARGE MEDICATIONS: Lisinopril 5 mg p.o. daily, metformin 500 mg p.o. b.i.d., Humulin 70/30 35 un its subcu b.i.d., glyburide 5 mg p.o. b.i.d. CONTRAINDICATIONS: None. CODE STATUS: FULL CODE. INPATIENT PROVINCE ARCHIVIST: None. ALLERGIES: No known drug allergies. DISCHARGE PLAN: Post hospital, patient will follow up with primary care physician in 1 week. HOSPITAL COURSE: A 57-year-old female who was admitted by Dr. Abbie Toledo. Please see his H&P fo r further details. The patient was admitted for diabetic ketoacidosis. This patient has underlying history of diabetes and she ran out of her insulin medication and she was not taking those medication s and that is why she had acute diabetic ketoacidosis. She was admitted in the IMCU as per DKA meena col treatment. Subsequently, we started her home dose of insulin medication and we transferred her t o medical floor. While in hospital, we corrected her abnormal electrolytes. Today we are also replacing potassium phosphate and magnesium sulfate and after that we are going to recheck labs around 3 p.m. After that if numbers are still low, then we will replace orally if neede d. Otherwise, the patient will be discharged home with above-mentioned medication. The patient is seen and examined at bedside today. Please see my progress note from today for furthe r details. Dietary education as well as medication compliance education given to the patient.
[2017-07-11 15:27] LABS: Anion Gap 14 mmol/L (10-20); BUN (Urea Nitrogen) 6 mg/dL (9.8-20.1); Calc. Creatinine Clearance 72 mL/min (70-130); Calcium 9.3 mg/dL (7.8-10.44); Carbon Dioxide 19 mmol/L (22-29); Chloride 109 mmol/L (98-107); Estimated GFR-MDRD 57; Glucose 112 mg/dL (70-105); Magnesium 2.4 mg/dL (1.6-2.6); Phosphorus 4.1 mg/dL (2.3-4.7); Potassium 3.1 mmol/L (3.5-5.1); Sodium 139 mmol/L (136-145)
[2017-07-11 17:19] VITALS: BP 138/94; TEMP 97.9
== END 2017-07-11 17:48 | disposition home or self-care (01) | DRG 638 ==
LOC: ERS 09:22 → ERHOLD 11:55 → IMCU/EMU 21:55 → 3SE 07-10 14:31
PROVIDERS: ADMIT Hospitalist; ATTEND Hospitalist
DX: E11.10 Type 2 diabetes mellitus with ketoacidosis without coma (principal); N17.9 Acute kidney failure, unspecified; E83.39 Other disorders of phosphorus metabolism; N18.3 Chronic kidney disease, stage 3 (moderate); E83.42 Hypomagnesemia; E87.1 Hypo-osmolality and hyponatremia; E11.22 Type 2 diabetes mellitus with diabetic chronic kidney disease; E86.0 Dehydration; T38.3X6A Underdosing of insulin and oral hypoglycemic [antidiabetic] drugs, initial encounter; Z91.128 Patient's intentional underdosing of medication regimen for other reason; I12.9 Hypertensive chronic kidney disease with stage 1 through stage 4 chronic kidney disease, or unspecified chronic kidney disease; E87.6 Hypokalemia; E66.9 Obesity, unspecified; Z68.32 Body mass index [BMI] 32.0-32.9, adult; G89.29 Other chronic pain; Z79.4 Long term (current) use of insulin
CPT/HCPCS: 36415; 36416; 80048; 80053; 81003; 81015; 82010; 82805; 83605; 83735; 83930; 84100; 85025; 87040; 96361; 96365; 96366; 96374; 96375; A4216; J1815; J2270; J2405; J3475; J7050

== ENCOUNTER 2017-07-25 12:10 | Emergency (ER) | payer SELFPAY ==
[2017-07-25] MEDS ORDERED: Ketorolac Tromethamine 30 MG/ML VIAL ONE (13:35)
== END 2017-07-25 13:41 | disposition home or self-care (01) ==
LOC: ERS 12:10
DX: K02.9 Dental caries, unspecified (principal); K03.81 Cracked tooth; L03.211 Cellulitis of face; E11.9 Type 2 diabetes mellitus without complications; I10 Essential (primary) hypertension
CPT/HCPCS: 96372; J1885

== ENCOUNTER 2017-11-22 14:37 | Inpatient (IN) | payer SELFPAY ==
[2017-11-22 15:33] LABS: #Basophils 0.1 thou/uL (0.0-0.2); #Lymphocytes 1.7 thou/uL (1.20-3.40); #Monocytes 0.3 thou/uL (0.11-0.59); #Neutrophils 5.7 thou/uL (1.40-6.50); %Basophils 0.8 % (0.0-1.0); %Eosinophils 0.4 % (0.0-10.0); %Lymphocytes 21.6 % (21.0-51.0); %Monocytes 3.8 % (0.0-10.0); %Neutrophils 73.4 % (42.0-75.0); Hemoglobin 12.4 g/dL (12.0-16.0); Mean Corpuscular HGB CONC 33.5 g/dL (32.0-36.0); Mean Corpuscular Hemoglobin 28.3 pg (27.0-31.0); Mean Corpuscular Volume 84.5 fl (81.0-99.0); Mean Platelet Volume 10.4 fL (7.4-10.4); Platelet Count 197 thou/uL (130-400); Red Blood Cell (RBC) Count 4.38 mill/uL (4.20-5.40); White Blood Cell (WBC) Count 7.7 thou/uL (4.8-10.8)
[2017-11-22 15:38] LABS: Base Excess-Venous -0.4 mmol/L (0 (+/- 2.5)); Calcium, Ionized 1.08 mmol/L (1.12-1.32); Hemoglobin - Calc 14.2 g/dL (12.0-18.0); O2 Tension (PvO2) 76.4 mmHg (35.0-45.0); Potassium 3.8 mmol/L (3.4-4.7); T. Carbon Dioxide 25.2 mmol/L (1.0-85.0); pH (Venous) 7.408 (7.35-7.45); vO2 Saturation-calc 95.3 % (94-98)
[2017-11-22 15:57] LABS: ALT (SGPT) 11 U/L (8-55); AST (SGOT) 17 U/L (5-34); Albumin 3.8 g/dL (3.5-5.0); Alkaline Phosphatase 130 U/L (40-150); Anion Gap 27 mmol/L (10-20); BUN (Urea Nitrogen) 47 mg/dL (9.8-20.1); Bilirubin, Total 0.6 mg/dL (0.2-1.2); CKMB 1.1 ng/mL (0-6.6); Calc. Creatinine Clearance 0 mL/min (70-130); Calcium 9.4 mg/dL (7.8-10.44); Carbon Dioxide 21 mmol/L (22-29); Chloride 76 mmol/L (98-107); Estimated GFR-MDRD 18; Globulin 4.2 g/dL (2.4-3.5); Lipase 83 U/L (8-78); Magnesium 2.7 mg/dL (1.6-2.6); Phosphorus 5.1 mg/dL (2.3-4.7); Potassium 4.8 mmol/L (3.5-5.1); Troponin I Less than 0.010 ng/mL (< 0.028)
[2017-11-22] MEDS ORDERED: Insulin Regular 300 UNITS/3 ML VIAL ONE (15:59)
[2017-11-22 16:01] LABS: Glucose 938 mg/dL (70-105); Sodium 119 mmol/L (136-145)
--- NOTE | 2017-11-22 16:27 | RAD ---
CHEST ONE VIEW: HISTORY: Chest pain. COMPARISON: 04/04/2017 FINDINGS: The cardiac silhouette is magnified by projection. The pulmonary vasculature is accentuated by shall ow inspiration. The mediastinum is midline. No lobar consolidation or evidence of pneumothorax. IMPRESSION: No active cardiopulmonary abnormalities demonstrated. POS: [facility]
[2017-11-22 17:36] LABS: Bilirubin Negative (Negative); Blood, Urine Trace (Negative); Clarity CLEAR (Clear); Glucose, Urine (Dipstick) >=1000 mg/dL (Negative); Leukocyte Negative (Negative); Nitrite Negative (Negative); Protein, Urine (Dipstick) Negative (Neg-Trace); Urobilinogen 0.2 mg/dL (0.2-1.0); pH, Urine 5.5 (5.0-9.0)
[2017-11-22 17:41] LABS: Bacteria/HPF None Seen HPF (None Seen); Hyaline Casts/LPF 0-3 HYALINE CAST LPF (0-3 Hyaline); Pathc Cast-AUWi Flag 0.29 (0-2.49); RBC/HPF 0-3 HPF (0-3); Squamous Epithelial 0-3 HPF (0-3); WBC/HPF 0-3 HPF (0-3)
[2017-11-22] MEDS ORDERED: Ondansetron HCl/PF 4 MG/2 ML Vial IVP PRN ×2 (18:21→20:55)
[2017-11-22] MEDS ORDERED: Ondansetron ODT 4 MG TAB SL PRN (18:21)
[2017-11-22] MEDS ORDERED: Sodium Chloride 0.9% 1,000 ML IV SCH (18:21)
[2017-11-22 18:48] VITALS: BMI 32.1
[2017-11-22 19:11] LABS: Troponin I Less than 0.010 ng/mL (< 0.028)
--- NOTE | 2017-11-22 20:20 | HP ---
DATE OF ADMISSION: 11/22/2017 PRIMARY CARE PHYSICIAN: Morgan [facility]. TIME OF SERVICE: 1645. CHIEF COMPLAINT: Weakness. HISTORY OF PRESENT ILLNESS: Ms. Georges is a pleasant 57-year-old female with history of diabetes, high blood pressure, who presented to the emergency department to our facility for gene ralized weakness. She reports that she is diabetic and has difficulty controlling her sugar well. She has been taking all of her medicines regularly and reports recent polyuria and polydipsia. She has been more letharg ic and kind of slurring her speech, but is not any focal deficits. She had some loose stools associa sheng with her metformin, but otherwise has no other GI complaints. No bleeding. She took her blood sugar yesterday and noticed it was "low" but she could not remember how much it wa s, but she did not feel good and has not been get out of bed. Today, she felt worse and came to the emergency department for evaluation. On arrival, blood sugar was noted to be in the 900s. She had a creatinine of 3.26, up from her basel ine somewhere in the mid ones and had a beta hydroxy 7.2. Her pH was normal. Cardiac biomarkers wer e normal and CBC was pretty normal. She was given a normal saline, some IV insulin. We were subsequ ently called for admit. On my arrival, she is awake and alert, talking in a normal pattern. There is no slurred speech or dy sarthria. She has no focal deficits. She is feeling better. No fevers or chills. No diarrhea or constipation. Otherwise, no recent illnesses. PAST MEDICAL HISTORY: 1. Chronic kidney disease stage 3. 2. Diabetes mellitus type 2, insulin-dependent. 3. Obesity with a BMI of 30-35. 4. Essential hypertension. 5. History of DKA on past admission, diagnosed in 2015. PAST SURGICAL HISTORY: None. HOME MEDICATIONS: 1. Metoprolol 50 mg daily. I think it is probably succinate, but she did not have her actual medici ne with her. 2. Metformin 500 mg p.o. b.i.d., it causes diarrhea. 3. Lisinopril 20 mg p.o. b.i.d. 4. Glipizide 5 mg daily. 5. HCTZ 25 mg daily. 6. Novolin R 35 units b.i.d. plus sliding scale. ALLERGIES: NKDA. FAMILY HISTORY: Negative for clotting or bleeding disorder. No immune dysfunction. She has high bl ood pressure, diabetes, and non-premature heart disease in her family. SOCIAL HISTORY: Negative for habits x3. REVIEW OF SYSTEMS: All systems reviewed and negative except as stated per HPI. PHYSICAL EXAMINATION: VITAL SIGNS: Temperature on arrival to floor 97.9, pulse 67, blood pressure 106/69, respiratory 18, satting 94% on room air. GENERAL: She is awake. She is alert. She is oriented x2. Well-developed, well-nourished, obese Af rican [place] female, appears to be in no acute distress, but looks tired. HEENT: Normocephalic and atraumatic. Pupils equal, round, react to light bilaterally. Mucous membr anes are moist. She has no visible lesions. No thrush. NECK: Supple. She has no lymphadenopathy, JVD or thyromegaly. Normal carotid upstrokes. There are no bruits. LUNGS: Clear. Good air movement. Symmetrical chest excursion. No wheeze, no rales, no rhonchi. N o prolonged expiratory phase. CARDIOVASCULAR: She has a normal cardiac and regular. Normal S1, S2. No S3, S4. No murmurs. ABDOMEN: Soft. It is obese. It is nontender. She has no hepatosplenomegaly. No rebound, rigidity or guarding. She has good bowel sounds in all 4 quadrants. EXTREMITIES: No cyanosis, no clubbing. She has trace pedal edema. SKIN: Warm, moist and well perfused. She has no rashes or lesions. MUSCULOSKELETAL: Normal to inspection. All joints appear normal. There is no inflammation. No pal pable effusions. NEUROLOGIC: Cranial nerves II-XII are grossly intact. She has no focal deficits, 5/5 strength and n ormal speech pattern. LABORATORY DATA: On arrival, sodium 119, potassium 4.8, chloride 76, bicarbonate 21, BUN 47, creatin ine 3.26 and glucose of 938. Her sodium corrects to 139. Mag was elevated at 2.7, phos 5.1. Liver function, bilirubin within normal limits. CBC showed a white count of 7.7, hemoglobin 12.4, hematocrit of 37.0, platelet count is 197,000. CK-MB normal at 1.1. Troponin I is undetectable less than 0.010 and beta hydroxybutyrate of 7.20, pH of 7.41 on VBG. IMAGING STUDIES: Chest x-ray showed no acute cardiopulmonary disease. ASSESSMENT AND PLAN: 1. Hyperglycemia with elevated beta hydroxybutyrate. She has not been eating or drinking well. 2. Moderate dehydration. 3. Acute kidney injury secondary to dehydration and CLIFF inhibitor. 4. Pseudohyponatremia. 5. Essential hypertension. 6. Diabetes mellitus type 2. The patient was placed on IV fluids. We will start her on long-acting Lantus tonight plus 10 units o f Humalog with her meals plus a moderate Humalog sliding scale during the day and bedtime scale. We will check her electrolytes tonight and make adjustments in her fluids if needed and repeat labs in t he morning. She is not in DKA. She has no acidosis and her bicarbonate is 21. She probably has a n ormal anion gap. At this point, we will rehydrate her and correct electrolytes as needed. We will c ontinue her metoprolol. We will hold her lisinopril and hydrochlorothiazide in the setting of acute kidney injury and dehydration. We will hold her glipizide and metformin for now. We will change her current home insulins to Lantus and NovoLog for the time being. We did discuss advance directives. The patient does wish to be a FULL CODE.
[2017-11-22] MEDS ORDERED: Acetaminophen 325 MG TAB PO PRN (20:55)
[2017-11-22] MEDS ORDERED: hydrALAZINE 20 MG/ML VIAL SLOW IVP PRN (20:55)
[2017-11-22] MEDS ORDERED: Dextrose 50% Abboject 50 ML SYRINGE SLOW IVP PRN (20:55)
[2017-11-22] MEDS ORDERED: HumaLOG 300 UNITS/3 ML VIAL SC PRN (20:55)
[2017-11-22] MEDS ORDERED: Ondansetron ODT 4 MG TAB PO PRN (20:55)
[2017-11-22] MEDS ORDERED: Dextrose 5% in Water 1,000 ML IV PRN (20:55)
[2017-11-22 21:13] LABS: #Basophils 0.1 thou/uL (0.0-0.2); #Lymphocytes 1.8 thou/uL (1.20-3.40); #Monocytes 0.4 thou/uL (0.11-0.59); #Neutrophils 4.9 thou/uL (1.40-6.50); %Basophils 0.7 % (0.0-1.0); %Eosinophils 0.6 % (0.0-10.0); %Lymphocytes 25.6 % (21.0-51.0); %Neutrophils 68.1 % (42.0-75.0); Hemoglobin 11.6 g/dL (12.0-16.0); Mean Corpuscular HGB CONC 34.4 g/dL (32.0-36.0); Mean Corpuscular Hemoglobin 28.1 pg (27.0-31.0); Mean Corpuscular Volume 81.8 fl (81.0-99.0); Mean Platelet Volume 9.7 fL (7.4-10.4); Platelet Count 192 thou/uL (130-400); Red Blood Cell (RBC) Count 4.11 mill/uL (4.20-5.40); White Blood Cell (WBC) Count 7.2 thou/uL (4.8-10.8)
[2017-11-22 21:45] LABS: Anion Gap 22 mmol/L (10-20); BUN (Urea Nitrogen) 40 mg/dL (9.8-20.1); Calc. Creatinine Clearance 32 mL/min (70-130); Carbon Dioxide 24 mmol/L (22-29); Chloride 86 mmol/L (98-107); Estimated GFR-MDRD 23; Glucose 717 mg/dL (70-105); Magnesium 2.1 mg/dL (1.6-2.6); Phosphorus 3.5 mg/dL (2.3-4.7); Potassium 4.1 mmol/L (3.5-5.1); Sodium 128 mmol/L (136-145)
[2017-11-22] MEDS: Sodium Chloride 0.9% 1,000 ML IV SCH (21:45)
[2017-11-22] MEDS: Insulin Glargine 20 UNITS in Pre-Filled Syringe 1 EACH SC SCH (21:46)
[2017-11-22] MEDS: Famotidine 20 MG TAB PO SCH (21:46)
[2017-11-22] MEDS: Metoprolol Tartrate 25 MG TAB PO SCH (21:46)
[2017-11-22] MEDS: HumaLOG 300 UNITS/3 ML VIAL SC PRN (22:08)
[2017-11-23 04:58] LABS: #Basophils 0.1 thou/uL (0.0-0.2); #Eosinphils 0.1 thou/uL (0.0-0.7); #Lymphocytes 2.6 thou/uL (1.20-3.40); #Monocytes 0.4 thou/uL (0.11-0.59); #Neutrophils 3.5 thou/uL (1.40-6.50); %Basophils 0.9 % (0.0-1.0); %Eosinophils 1.3 % (0.0-10.0); %Lymphocytes 39.7 % (21.0-51.0); %Monocytes 5.7 % (0.0-10.0); %Neutrophils 52.4 % (42.0-75.0); Hemoglobin 11.3 g/dL (12.0-16.0); Mean Corpuscular HGB CONC 33.6 g/dL (32.0-36.0); Mean Corpuscular Hemoglobin 27.1 pg (27.0-31.0); Mean Corpuscular Volume 80.8 fl (81.0-99.0); Mean Platelet Volume 9.5 fL (7.4-10.4); Platelet Count 183 thou/uL (130-400); RBC Distribution Width 11.7 % (11.5-14.5); Red Blood Cell (RBC) Count 4.16 mill/uL (4.20-5.40); White Blood Cell (WBC) Count 6.6 thou/uL (4.8-10.8)
[2017-11-23 05:16] LABS: Anion Gap 15 mmol/L (10-20); BUN (Urea Nitrogen) 32 mg/dL (9.8-20.1); Calc. Creatinine Clearance 41 mL/min (70-130); Calcium 9.3 mg/dL (7.8-10.44); Carbon Dioxide 24 mmol/L (22-29); Chloride 95 mmol/L (98-107); Estimated GFR-MDRD 30; Glucose 522 mg/dL (70-105); Phosphorus 1.9 mg/dL (2.3-4.7); Potassium 3.5 mmol/L (3.5-5.1); Sodium 130 mmol/L (136-145)
[2017-11-23] MEDS: HumaLOG 300 UNITS/3 ML VIAL SC PRN ×3 (05:20→17:50)
[2017-11-23] MEDS: Sodium Chloride 0.9% 1,000 ML IV SCH ×3 (05:41→17:50)
[2017-11-23] MEDS ORDERED: HumaLOG 300 UNITS/3 ML VIAL SC SCH (08:00)
[2017-11-23] MEDS: Metoprolol Tartrate 25 MG TAB PO SCH ×2 (08:38→21:38)
[2017-11-23] MEDS: K-Phos Neutral 250 MG TAB PO SCH ×2 (08:42→12:13)
[2017-11-23] MEDS ORDERED: Prevnar 13-Val Conj/PF 0.5 ML SYRINGE IM ONE (09:00)
[2017-11-23] MEDS: HumaLOG 300 UNITS/3 ML VIAL SC SCH ×2 (12:14→17:49)
--- NOTE | 2017-11-23 13:51 | PDOC.PN ---
- Subjective Encounter Start Date: 11/23/17 Encounter Start Time: 10:30 Pt feeling better, sugars down, labs normalizing, Cr much better urinating well. No f/c, some cough with yellow sputum, no CP, no SOB, no N/V/D/c. All systems reviewed and neg x as above - Objective Resuscitation Status: Resuscitation Status FULL:Full Resuscitation MAR Reviewed: Yes Vital Signs & Weight: Vital Signs (12 hours) Temp Pulse Resp BP Pulse Ox 11/23/17 12:23 98.0 F 72 18 120/74 95 11/23/17 08:47 97.0 F L 78 17 118/71 96 11/23/17 08:00 98.7 F 72 18 96 11/23/17 04:54 98.7 F 72 18 123/76 93 L 11/23/17 04:33 100 Weight Weight 182 lb 9.6 oz I&O: 11/22/17 11/23/17 11/24/17 06:59 06:59 06:59 Intake Total 1800 240 Output Total 2100 Balance -300 240 Result Diagrams: 11/23/17 04:38 11/23/17 04:38 Additional Labs: Accuchecks 11/23/17 11/23/17 11/22/17 10:35 06:24 20:44 POC Glucose 351 H 499 H Greater than 550 H* 11/22/17 17:23 POC Glucose Greater than 550 H* Radiology Reviewed by me: Yes EKG Reviewed by me: Yes Phys Exam - Physical Examination Constitutional: NAD HEENT: PERRLA, moist MMs, sclera anicteric, oral pharynx no lesions Neck: no nodes, no JVD, supple, full ROM Respiratory: no wheezing, no rales, no rhonchi, clear to auscultation bilateral Cardiovascular: RRR, no significant murmur, no rub Gastrointestinal: soft, non-tender, no distention, positive bowel sounds Musculoskeletal: no edema, pulses present Neurological: non-focal, normal sensation, moves all 4 limbs Lymphatic: no nodes Psychiatric: normal affect, A&O x 3 Skin: no rash, normal turgor, cap refill <2 seconds Dx/Plan (1) Hyperglycemia Code(s): R73.9 - HYPERGLYCEMIA, UNSPECIFIED Status: Acute Comment: due to not tkaing meds. better today, on insulin alone. CCM, pt not wanting to restart po meds due to diarrhea (2) DM2 (diabetes mellitus, type 2) Status: Chronic Qualifiers: Diabetes mellitus intermediate school teacher insulin use: with intermediate school teacher use Diabetes mellitus complication status: with hyperglycemia Qualified Code(s): E11.65 - Type 2 diabetes mellitus with hyperglycemia; Z79.4 - exterminator helper (current) use of insulin; Z79.4 - prison (current) use of insulin; Z79.4 - exterminator helper (current ) use of insulin; Z79.4 - prison (current) use of insulin (3) CKD (chronic kidney disease) stage 3, GFR 30-59 ml/min Code(s): N18.3 - CHRONIC KIDNEY DISEASE, STAGE 3 (MODERATE) Status: Chronic (4) BOSSMAN (acute kidney injury) Code(s): N17.9 - ACUTE KIDNEY FAILURE, UNSPECIFIED Status: Acute Comment: Cr down to 2.09, almost back to baseline (5) Moderate dehydration Code(s): E86.0 - DEHYDRATION Status: Resolved (6) Chronic pain Code(s): G89.29 - OTHER CHRONIC PAIN Status: Chronic Qualifiers: Chronic pain type: other chronic pain Qualified Code(s): G89.29 - Other chronic pain (7) HTN (hypertension) Code(s): I10 - ESSENTIAL (PRIMARY) HYPERTENSION Status: Chronic Qualifiers: Hypertension type: essential hypertension Qualified Code(s): I10 - Essential (primary) hypertension - Plan cont current plan of care, PT/OT, out of bed/ambulate * .
[2017-11-23] MEDS: Famotidine 20 MG TAB PO SCH (21:38)
[2017-11-23] MEDS: Insulin Glargine 20 UNITS in Pre-Filled Syringe 1 EACH SC SCH (21:38)
[2017-11-24] MEDS: Sodium Chloride 0.9% 1,000 ML IV SCH ×3 (00:45→16:17)
[2017-11-24 05:25] LABS: #Basophils 0.1 thou/uL (0.0-0.2); #Lymphocytes 2.1 thou/uL (1.20-3.40); #Monocytes 0.3 thou/uL (0.11-0.59); #Neutrophils 2.6 thou/uL (1.40-6.50); %Basophils 1.6 % (0.0-1.0); %Eosinophils 0.6 % (0.0-10.0); %Lymphocytes 41.6 % (21.0-51.0); %Monocytes 5.7 % (0.0-10.0); %Neutrophils 50.5 % (42.0-75.0); Hemoglobin 10.9 g/dL (12.0-16.0); Mean Corpuscular HGB CONC 34.4 g/dL (32.0-36.0); Mean Corpuscular Hemoglobin 28.2 pg (27.0-31.0); Mean Corpuscular Volume 82.1 fl (81.0-99.0); Mean Platelet Volume 10.1 fL (7.4-10.4); Platelet Count 173 thou/uL (130-400); Red Blood Cell (RBC) Count 3.87 mill/uL (4.20-5.40); White Blood Cell (WBC) Count 5.1 thou/uL (4.8-10.8)
[2017-11-24 05:47] LABS: Anion Gap 8 mmol/L (10-20); BUN (Urea Nitrogen) 18 mg/dL (9.8-20.1); Calc. Creatinine Clearance 58 mL/min (70-130); Calcium 8.8 mg/dL (7.8-10.44); Carbon Dioxide 26 mmol/L (22-29); Chloride 97 mmol/L (98-107); Estimated GFR-MDRD 44; Magnesium 1.3 mg/dL (1.6-2.6); Sodium 128 mmol/L (136-145)
[2017-11-24 05:50] LABS: Glucose 621 mg/dL (70-105)
[2017-11-24] MEDS ORDERED: HumaLOG 300 UNITS/3 ML VIAL SC PRN (06:19)
[2017-11-24 06:26] LABS: Hemoglobin A1c 16.5 % (4.0-6.0)
[2017-11-24] MEDS ORDERED: HumaLOG 300 UNITS/3 ML VIAL SC SCH (06:30)
[2017-11-24] MEDS ORDERED: glyBURIDE 5 MG TAB PO SCH ×2 (08:15→17:00)
[2017-11-24] MEDS ORDERED: metFORMIN 500 MG TAB PO SCH ×2 (08:15→17:00)
[2017-11-24] MEDS ORDERED: Magnesium Sulfate 4 GM in Sodium Chloride 0.9% 250 ML 250 ML IVPB SCH ×2 (08:15→08:30)
[2017-11-24] MEDS: Metoprolol Tartrate 25 MG TAB PO SCH (08:56)
[2017-11-24] MEDS: Potassium Chloride 20 MEQ TAB PO SCH ×3 (08:56→16:27)
[2017-11-24] MEDS ORDERED: Insulin NPH/Reg Insulin Hm 300 UNITS/3 ML VIAL SC SCH (09:00)
[2017-11-24 11:29] VITALS: BP 97/61; TEMP 97.8
[2017-11-24] MEDS: HumaLOG 300 UNITS/3 ML VIAL SC SCH ×2 (12:24→16:33)
[2017-11-24] MEDS ORDERED: Benzonatate 100 MG CAP PO PRN (12:35)
[2017-11-24] MEDS ORDERED: Guaifenesin DM 100-10/5 ML UDCUP PO PRN (12:35)
--- NOTE | 2017-11-24 13:30 | DIS ---
DATE OF ADMISSION: 11/22/2017 DATE OF DISCHARGE: 11/24/2017 PRIMARY CARE PHYSICIAN: Morgan Dai. DISCHARGE DIAGNOSES: 1. Diabetes mellitus, type 2, uncontrolled with severe hyperglycemia. 2. Acute kidney injury secondary to dehydration. 3. Dehydration secondary to elevated blood sugars and polyuria. 4. Hypertension. 5. Medical nonadherence. 6. Hypomagnesemia and hypokalemia, both resolved. 7. Obesity. CONSULTATIONS: None. PROCEDURES: None. HISTORY AND PHYSICAL: Ms. Georges is a 57-year-old female, who presented to the hospital for weakness, was found to have severe hyperglycemia with a sugar in the 900s. She was seen at an outside emergen cy department initially, was given IV insulin, started on IV fluids, and transferred here. On arriva l, her sugars were slightly better. Her anion gap was normal, and she had a pH of 7.41, and no evide nce of DKA. She subsequently was placed on an inpatient status and started on a diabetic diet, IV fl uids, electrolyte monitoring and replacement, and long-acting insulin at night with a.c. and at bedti me scheduled insulin plus sliding scale. HOSPITAL COURSE: The patient was seen and examined by me with the above changes. She was placed on in-patient status. Overnight, she did well, but her sugars remained elevated, though slowly improvin g. Labs the next morning were normal, creatinine improved from 3.2 down to 2.0. She was feeling bet ter, but still having a cough. Her sugars were still out of control, so she was watched overnight. Overnight, 11/23/2017 to 11/24/2017, she got hungry and ate a boxed lunch for midnight snack. Sugars , this morning, were in the 600 range. She was restarted on her home medications and increased to an aggressive sliding scale. By lunchtime, her sugars were down to 229. A1c came back at 16.3, which corresponds to an average blood sugar of over 400. Her potassium this morning was 3.0. She was replaced. Magnesium was low and that was replaced, and she was, otherwise, stable for discharge with outpatient followup. She and I did discuss. She basically has met with a diabetic dietitian before and has been instructe d. She states she knows how to follow diabetic diet. I encouraged her to stick to a meal regimen wi th 60 grams of carbohydrates per meal and 15 grams snack between meals and at bedtime. I increased h er 70/30 based on the amount of insulin being used to 45 b.i.d. and encouraged her to follow up with [facility] as soon as possible, needing close monitoring. I did offer her regular insulin sliding s sindhu on top of her regular insulin and she declined. PHYSICAL EXAMINATION: The patient was seen and examined on the day of discharge. Discharge plan and disposition and recommendations were discussed with the patient [id number] at e bedside. DISCHARGE MEDICATIONS: 1. Insulin 70/30, 45 units subcu b.i.d. before meals, breakfast and supper. 2. Glyburide 5 mg p.o. b.i.d. 3. Metformin 500 mg p.o. b.i.d. 4. Lisinopril 5 mg daily. 5. Benzonatate 200 mg p.o. t.i.d. p.r.n. cough. New prescription sent. 6. Metoprolol tartrate 25 mg p.o. b.i.d. New prescription sent. DISCHARGE CONDITION: Stable. DISPOSITION: Being discharged home via private vehicle. FOLLOWUP APPOINTMENTS: Morgan Dai next available for hospital followup and diabetes managemen t. DISCHARGE ACTIVITY: As tolerated. DISCHARGE DIET: Heart healthy diabetic diet as above recommended.
[2017-11-25] MEDS ORDERED: HumaLOG 300 UNITS/3 ML VIAL SC SCH (08:00)
== END 2017-11-24 17:34 | disposition home or self-care (01) | DRG 638 ==
LOC: ERS 14:37 → 2NO 16:20 → T4-A 11-23 20:35
PROVIDERS: ADMIT Internal Medicine Infectious Disease; ATTEND Internal Medicine Infectious Disease
DX: E11.65 Type 2 diabetes mellitus with hyperglycemia (principal); N17.9 Acute kidney failure, unspecified; E86.0 Dehydration; Z91.19 Patient's noncompliance with other medical treatment and regimen; E83.42 Hypomagnesemia; E87.6 Hypokalemia; E66.9 Obesity, unspecified; Z68.32 Body mass index [BMI] 32.0-32.9, adult; Z79.4 Long term (current) use of insulin; E11.22 Type 2 diabetes mellitus with diabetic chronic kidney disease; N18.3 Chronic kidney disease, stage 3 (moderate); I12.9 Hypertensive chronic kidney disease with stage 1 through stage 4 chronic kidney disease, or unspecified chronic kidney disease; G89.29 Other chronic pain
CPT/HCPCS: 36415; 36416; 71045; 80048; 80053; 81003; 81015; 82010; 82330; 82553; 82803; 83036; 83690; 83735; 84100; 84484; 85025; 87077; 87086; 90471; 90670; 93005; 96361; 96374; G0009; J1815; J3475; J7050

== ENCOUNTER 2017-12-05 16:32 | Inpatient (IN) | payer SELFPAY ==
[2017-12-05 17:31] LABS: Base Excess-Venous -13.3 mmol/L (0 (+/- 2.5)); Bicarbonate (HCO3v) 13.7 mmol/L (1.0-85.0); CO2 Tension (PvCO2) 34.7 mmHg (41.0-51.0); Calcium, Ionized 1.35 mmol/L (1.12-1.32); Hemoglobin - Calc 15.2 g/dL (12.0-18.0); O2 Tension (PvO2) 29.8 mmHg (35.0-45.0); Potassium 4.5 mmol/L (3.4-4.7); T. Carbon Dioxide 14.7 mmol/L (1.0-85.0); pH (Venous) 7.204 (7.35-7.45); vO2 Saturation-calc 44.8 % (94-98)
[2017-12-05 17:52] LABS: #Basophils 0.1 thou/uL (0.0-0.2); #Lymphocytes 2.1 thou/uL (1.20-3.40); #Monocytes 0.4 thou/uL (0.11-0.59); #Neutrophils 5.3 thou/uL (1.40-6.50); %Basophils 0.7 % (0.0-1.0); %Eosinophils 0.4 % (0.0-10.0); %Lymphocytes 26.5 % (21.0-51.0); %Monocytes 5.3 % (0.0-10.0); Hemoglobin 12.5 g/dL (12.0-16.0); Mean Corpuscular HGB CONC 34.6 g/dL (32.0-36.0); Mean Corpuscular Hemoglobin 28.4 pg (27.0-31.0); Mean Platelet Volume 8.9 fL (7.4-10.4); Platelet Count 169 thou/uL (130-400); RBC Distribution Width 12.9 % (11.5-14.5); Red Blood Cell (RBC) Count 4.39 mill/uL (4.20-5.40); White Blood Cell (WBC) Count 7.9 thou/uL (4.8-10.8)
[2017-12-05 18:12] LABS: ALT (SGPT) 9 U/L (8-55); AST (SGOT) 11 U/L (5-34); Alkaline Phosphatase 120 U/L (40-150); Anion Gap 27 mmol/L (10-20); BUN (Urea Nitrogen) 19 mg/dL (9.8-20.1); Bilirubin, Total 0.6 mg/dL (0.2-1.2); Calc. Creatinine Clearance 0 mL/min (70-130); Calcium 10.3 mg/dL (7.8-10.44); Carbon Dioxide 12 mmol/L (22-29); Chloride 93 mmol/L (98-107); Estimated GFR-MDRD 25; Lipase 47 U/L (8-78); Magnesium 2.2 mg/dL (1.6-2.6); Phosphorus 4.1 mg/dL (2.3-4.7); Potassium 4.5 mmol/L (3.5-5.1); Sodium 127 mmol/L (136-145)
[2017-12-05 18:16] LABS: CKMB 1.2 ng/mL (0-6.6); Troponin I Less than 0.010 ng/mL (< 0.028)
[2017-12-05 18:20] LABS: Glucose 759 mg/dL (70-105)
--- NOTE | 2017-12-05 18:58 | RAD ---
CHEST ONE VIEW 12/05/17 COMPARISON: 12/05/17 HISTORY: Vomiting and nausea. FINDINGS: Portable upright chest: Normal cardiac silhouette. The pulmonary vessels and hilum are normal. No consolidation or mass. No p neumothorax or osseous abnormalities. IMPRESSION: No acute cardiopulmonary process. POS: [facility]
[2017-12-05 19:01] LABS: Bilirubin Negative (Negative); Blood, Urine Trace (Negative); Clarity CLEAR (Clear); Glucose, Urine (Dipstick) >=1000 mg/dL (Negative); Leukocyte Negative (Negative); Nitrite Negative (Negative); Protein, Urine (Dipstick) Trace mg/dL (Neg-Trace); Specific Gravity, Urine 1.025 (1.002-1.036); Urobilinogen 0.2 mg/dL (0.2-1.0); pH, Urine 5.5 (5.0-9.0)
[2017-12-05 19:07] LABS: Bacteria/HPF None Seen HPF (None Seen); Hyaline Casts/LPF 0-3 HYALINE CAST LPF (0-3 Hyaline); Pathc Cast-AUWi Flag 0.14 (0-2.49); RBC/HPF 0-3 HPF (0-3); Squamous Epithelial 0-3 HPF (0-3); WBC/HPF 0-3 HPF (0-3)
[2017-12-05] MEDS ORDERED: Insulin Regular 100 units/100 ml in NS IVPB SCH (19:15)
[2017-12-05] MEDS ORDERED: Dextrose 5 %-0.45 % NaCl 1,000 ML IV PRN (20:06)
[2017-12-05] MEDS ORDERED: CCU Electrolyte Replacement 1 EACH IVPB SCH ×2 (20:06→20:08)
[2017-12-05] MEDS ORDERED: Sodium Chloride 0.9% 1,000 ML IV PRN ×4 (20:06)
[2017-12-05] MEDS ORDERED: NS 0.9% w/ 20 MEQ KCL 1,000 ML IV PRN ×2 (20:06)
[2017-12-05] MEDS ORDERED: Acetaminophen 325 MG/10.15 ML UDCUP PO PRN (20:08)
[2017-12-05] MEDS ORDERED: Ondansetron HCl/PF 4 MG/2 ML Vial IVP PRN (20:08)
[2017-12-05 20:14] LABS: Anion Gap 27 mmol/L (10-20); BUN (Urea Nitrogen) 17 mg/dL (9.8-20.1); Calc. Creatinine Clearance 0 mL/min (70-130); Calcium 10.4 mg/dL (7.8-10.44); Carbon Dioxide 10 mmol/L (22-29); Chloride 97 mmol/L (98-107); Estimated GFR-MDRD 24; Potassium 5.4 mmol/L (3.5-5.1); Sodium 129 mmol/L (136-145)
[2017-12-05] MEDS ORDERED: Magnesium 2 GM/NS 0.9% 100 ML 2 GM in Premix Bag 1 BAG IVPB PRN (20:15)
[2017-12-05] MEDS ORDERED: Potassium Chloride 20 MEQ TAB PO PRN (20:15)
[2017-12-05] MEDS ORDERED: Magnesium Oxide 400 MG TAB PO PRN ×2 (20:15)
[2017-12-05] MEDS ORDERED: CCU ELECTROLYTE REPLACEMENT PROTOCOL FS PRN (20:15)
[2017-12-05] MEDS ORDERED: Potassium Phosphate 15 MMOL in Sodium Chloride 0.9% 250 ML 250 ML IV PRN (20:15)
[2017-12-05] MEDS ORDERED: Potassium Phosphate 9 MMOL in Sodium Chloride 0.9% 100 ML IVPB PRN (20:15)
[2017-12-05] MEDS ORDERED: Potassium Chloride 40 MEQ in Sodium Chloride 0.9% 250 ML 250 ML IVPB PRN (20:15)
[2017-12-05] MEDS ORDERED: Potassium Chloride 40 MEQ in Premix Bag 1 BAG IVPB PRN (20:15)
[2017-12-05] MEDS ORDERED: Potassium Phosphate 12 MMOL in Sodium Chloride 0.9% 250 ML 250 ML IV PRN (20:15)
[2017-12-05 20:18] LABS: Glucose 641 mg/dL (70-105)
--- NOTE | 2017-12-05 21:18 | HP ---
PRIMARY CARE PHYSICIAN: [facility] [place]. PRESENTING COMPLAINT: Nausea and vomiting. HISTORY OF PRESENT ILLNESS: Ms. Leonila Georges is a 57-year-old female with a past medical history of CK D, stage 3; type 2 diabetes mellitus, insulin dependent; essential hypertension; and previous history of DKA, who presented to the emergency room with 2-week history of worsening fatigue, dizziness, poo r appetite, nausea, and vomiting as well as a dry cough. She reports that she has not taken insulin for over a month due to inability to afford insulin ordered on outpatient basis, and also unable to t olerate metformin, which she states gives her nausea, vomiting, and abdominal pain. Her family final ly convinced her to come to the emergency room today, because she looks very unwell. At the emergenc y room, she was found to be in DKA with blood glucose of 759, elevated beta-hydroxybutyrate of 9.76. She also had a blood gas done, which showed a pH of 7.204, pCO2 of 34.7, and pO2 of 29.81 (VBG). He r urinalysis was unremarkable and CBC was within normal limits. On chest x-ray, it did show no acute pulmonary process and EKG showed no signs of acute ischemia. Initial troponin was less than 0.010. The patient was admitted and re-started on an insulin drip. She received 2 liters of normal saline bolus and was admitted to the Intensive Care Unit for further management. PAST MEDICAL HISTORY: CKD, stage 3; insulin-dependent type 2 diabetes mellitus; obesity; essential h ypertension; history of DKA. PAST SURGICAL HISTORY: None. SOCIAL HISTORY: Does not drink alcohol, smoke cigarettes, or use illicit medications. FAMILY HISTORY: Reviewed and noncontributory. ALLERGIES: No known allergies. HOME MEDICATIONS: Tessalon Perles 200 mg t.i.d. p.r.n., glyburide 5 mg b.i.d., insulin NPH/regular i nsulin HM 45 units subcutaneously b.i.d., lisinopril 5 mg daily, metformin 500 mg b.i.d., metoprolol 25 mg b.i.d. REVIEW OF SYSTEMS: All systems reviewed and negative except as stated in HPI. The patient denies ch est pain, shortness of breath, palpitations, PND, orthopnea, or lower extremity edema. She has no ur inary symptoms as well. PHYSICAL EXAMINATION: VITAL SIGNS: Stable. Blood pressure 112/82, heart rate 91, oxygen saturation 95% on room air, tempe rature normal. GENERAL: In mild discomfort, but not in acute distress. HEENT: Dry mucous membranes. Not pale, anicteric. PERRLA. EOMI. NECK: Supple. No JVD. Full range of movement. CARDIOVASCULAR: S1 and S2 only. Regular rate and rhythm. No murmurs, rubs, or gallops. RESPIRATORY: Vesicular breath sounds bilaterally. No wheezes, rales, or rhonchi. ABDOMEN: Soft. Diffuse tenderness, but no rebound, guarding, or rigidity. Bowel sounds normoactive . EXTREMITIES: No edema. Moves all extremities spontaneously. NEUROLOGIC: Lethargic, but oriented to time, place, and person. No focal deficits. PSYCHIATRIC: Normal mood and affect. SKIN: Warm, dry, well perfused. No rashes or lesions. LABORATORY DATA: CBC within normal limits. Serum chemistry showed hyponatremia of 127, anion gap of 27, creatinine of 2.46, and glucose of 759. Beta-hydroxybutyrate is 9.76. ASSESSMENT: 1. Diabetic ketoacidosis. 2. Type 2 diabetes, insulin dependent with patient not adherent to medication. 3. Acute kidney injury, on chronic kidney disease. 4. Hypertension. 5. Pseudohyponatremia. 6. Dehydration secondary to diabetic ketoacidosis. PLAN: The patient will be admitted to the ICU and started on DKA protocol. Her electrolytes will be repleted as well. We will check her BMP every 3 hours and VBG every 3 hours as well. Once her anio n gap was closed and bicarbonate is within normal limits, then we will just continue to follow the DK A protocol. We will also consult Critical Care for further management. She will remain n.p.o. for n ow. Her DKA is likely due to medication nonadherence and not due to an infectious process, so we rosa l hold off on antibiotics for now. Also for her hyponatremia, it is likely due to markedly elevated blood glucose, so we will monitor her serum sodium as well as serum potassium while we correct her vo lume status and blood glucose. Also, check before meals and at bedtime q.1 hour. For her hypertension, we will resume her home medications once they have been confirmed. Also, hydration should improve her acute renal failure. Critical care time, 40 minutes. DVT prophylaxis, subcutaneous heparin. CODE STATUS: FULL CODE.
[2017-12-05 21:45] VITALS: BMI 29.9
[2017-12-05] MEDS: Heparin 5,000 UNITS/ML VIAL SC SCH (22:05)
[2017-12-05 23:32] LABS: Troponin I Less than 0.010 ng/mL (< 0.028)
[2017-12-05 23:36] LABS: Anion Gap 17 mmol/L (10-20); BUN (Urea Nitrogen) 14 mg/dL (9.8-20.1); Calc. Creatinine Clearance 42 mL/min (70-130); Calcium 9.3 mg/dL (7.8-10.44); Carbon Dioxide 15 mmol/L (22-29); Chloride 107 mmol/L (98-107); Estimated GFR-MDRD 33; Glucose 358 mg/dL (70-105); Phosphorus 1.2 mg/dL (2.3-4.7); Potassium 3.5 mmol/L (3.5-5.1); Sodium 135 mmol/L (136-145)
[2017-12-06 04:40] LABS: Actual Bicarbonate (HCO3v) 16 mEq/L (22-28); Base Excess -6.5 mEq/L (-2.0 to +3.0); pH (venous) 7.451 (7.32-7.43)
[2017-12-06 04:41] LABS: Calcium, Ionized 1.13 mmol/L (1.16-1.32); Chloride (ABG LAB) 108 mmol/L (98-106); Hematocrit-VBG 32.8 % (44.0-64.0); Hemoglobin (Hb) 11.1 g/dL (11.7-16.0); Potassium - ABG Lab 3.4 mmol/L (3.70-5.30); Sodium 138.1 mmol/L (133-146)
[2017-12-06 05:18] LABS: Anion Gap 14 mmol/L (10-20); BUN (Urea Nitrogen) 10 mg/dL (9.8-20.1); Calc. Creatinine Clearance 53 mL/min (70-130); Calcium 8.6 mg/dL (7.8-10.44); Carbon Dioxide 15 mmol/L (22-29); Chloride 110 mmol/L (98-107); Estimated GFR-MDRD 44; Glucose 154 mg/dL (70-105); Potassium 3.4 mmol/L (3.5-5.1); Sodium 136 mmol/L (136-145)
[2017-12-06 06:43] LABS: #Basophils 0.1 thou/uL (0.0-0.2); #Eosinphils 0.1 thou/uL (0.0-0.7); #Lymphocytes 2.8 thou/uL (1.20-3.40); #Monocytes 0.5 thou/uL (0.11-0.59); #Neutrophils 3.2 thou/uL (1.40-6.50); %Basophils 1.1 % (0.0-1.0); %Eosinophils 1.6 % (0.0-10.0); %Lymphocytes 41.7 % (21.0-51.0); %Monocytes 7.2 % (0.0-10.0); %Neutrophils 48.4 % (42.0-75.0); Hemoglobin 10.6 g/dL (12.0-16.0); Mean Corpuscular HGB CONC 34.2 g/dL (32.0-36.0); Mean Corpuscular Hemoglobin 27.4 pg (27.0-31.0); Mean Corpuscular Volume 80.3 fl (81.0-99.0); Mean Platelet Volume 8.4 fL (7.4-10.4); Platelet Count 158 thou/uL (130-400); RBC Distribution Width 12.7 % (11.5-14.5); Red Blood Cell (RBC) Count 3.87 mill/uL (4.20-5.40); White Blood Cell (WBC) Count 6.6 thou/uL (4.8-10.8)
[2017-12-06 07:05] LABS: Troponin I Less than 0.010 ng/mL (< 0.028)
[2017-12-06] MEDS: D5 1/2 NS w/20 mEq KCL 1,000 ML IV PRN ×2 (07:47→12:05)
[2017-12-06] MEDS: Heparin 5,000 UNITS/ML VIAL SC SCH ×3 (09:20→21:18)
[2017-12-06 09:47] LABS: BUN (Urea Nitrogen) 8 mg/dL (9.8-20.1); Calc. Creatinine Clearance 53 mL/min (70-130); Calcium 8.8 mg/dL (7.8-10.44); Carbon Dioxide 21 mmol/L (22-29); Chloride 107 mmol/L (98-107); Estimated GFR-MDRD 43; Glucose 211 mg/dL (70-105); Sodium 134 mmol/L (136-145)
--- NOTE | 2017-12-06 11:49 | CON ---
DATE OF CONSULTATION: 12/06/2017 HISTORY OF PRESENT ILLNESS: This is a very pleasant 57-year-old female who presented to the hospital with a creatinine more than 2. Baseline creatinine was less than 1 with nausea and vomiting. The p atient was admitted for DKA. The patient was hydrated. Her creatinine has improved today. The amairani ent denies any nausea, vomiting or chest pain and does not complain of any infection. PAST MEDICAL HISTORY: Chronic kidney disease stage 3, diabetes mellitus, hypertension, DKA. SOCIAL HISTORY: No alcohol or drug use. FAMILY HISTORY: Negative for ESRD. ALLERGIES: Reviewed. HOME MEDICATIONS: Reviewed. HOSPITAL MEDICATIONS: Reviewed. REVIEW OF SYSTEMS: Fifteen point review of systems was performed and negative except for noted above . GENERAL: Weakness- HEAD: Headache- NECK: No swelling or lumps. NOSE: No epistaxis or discharge. EYES: No diplopia or pain. RESPIRATORY: Dyspnea- CARDIOVASCULAR: Chest pain- GASTROINTESTINAL: Nausea- /MILL SET UP: Hematuria- MUSCULOSKELETAL: No joint pain. NEUROPSYCHIATIC SYSTEMS: No suicidal ideation. No ideation. SKIN: Denies any rash or ulcer. CONSTITUTIONAL: No fever or chills. PHYSICAL EXAMINATION: GENERAL: Patient is awake, alert. VITAL SIGNS: Afebrile, pulse 72, breathing 16, blood pressure was 120/91. OBJECTIVE: See above. Awake, alert, in no acute distress. GENERAL APPEARANCE AND MENTAL STATUS: Fair. HEAD/NECK: Normocephalic. Atraumatic. EYES: EOMI. No deformity. EARS: Clear. No ulcers. NOSE: Intact. No lesions. MOUTH: Clear. No discharge. THROAT: Clear. No exudate. LUNGS: Clear. No crackles. CARDIAC: S1, S2. No rub. ABDOMEN: Benign. BS+. GENITALIA/RECTUM: Bhatti absent. BACK/EXTREMITIES: Edema 0+ Ulcer- NEUROLOGICAL: Alert and motor intact. SKIN: Rash- Bruise- LYMPHATICS: Edema- Ulcer- LABORATORY: Hemoglobin 10.6, potassium is 3, creatinine 1.5. ASSESSMENT AND RECOMMENDATIONS: 1. Acute kidney injury with chronic kidney disease, improved. 2. Hypertension, stable. 3. Anemia, stable. 4. Hypokalemia. Recommend aggressive potassium replacement. Creatinine is at baseline. I will sign off on this patient. Please reconsult as needed.
--- NOTE | 2017-12-06 13:24 | PDOC.PN ---
- Subjective Encounter Start Date: 12/06/17 Encounter Start Time: 08:40 Pt seen for followup re: DKA. Denies chest pain, shortness of breath, fevers or chills. - Objective Resuscitation Status: Resuscitation Status FULL:Full Resuscitation MAR Reviewed: Yes Vital Signs & Weight: Vital Signs (12 hours) Temp Pulse Resp Pulse Ox 12/06/17 11:36 98 12/06/17 11:00 98.4 F 12/06/17 07:47 98.6 F 12/06/17 07:40 98.6 F 76 18 98 Weight Weight 174 lb 6.17 oz Most Recent Monitor Data Heart Rate from ECG 76 NIBP 113/68 NIBP BP-Mean 78 Respiration from ECG 16 SpO2 98 I&O: 12/05/17 12/06/17 12/07/17 06:59 06:59 06:59 Intake Total 3742.7 182 Output Total 1000 800 Balance 2742.7 -618 Result Diagrams: 12/06/17 06:21 12/06/17 09:04 Additional Labs: Accuchecks 12/06/17 12/06/17 12/06/17 12:07 10:47 09:05 POC Glucose 219 H 218 H 212 H 12/06/17 12/06/17 12/06/17 07:51 06:22 05:10 POC Glucose 221 H 203 H 164 H 12/06/17 12/06/17 12/06/17 04:05 03:36 02:00 POC Glucose 149 H 118 H 200 H 12/06/17 12/05/17 12/05/17 00:05 22:52 21:31 POC Glucose 322 H 346 H 532 H 12/05/17 12/05/17 21:08 20:07 POC Glucose 448 H 529 H EKG Reviewed by me: Yes (Tele: NSR) Phys Exam - Physical Examination Constitutional: NAD HEENT: moist MMs, sclera anicteric, oral pharynx no lesions, 2+ tonsils Neck: no nodes, no JVD, supple, full ROM Respiratory: no wheezing, no rales, no rhonchi, clear to auscultation bilateral Cardiovascular: RRR, no rub S1, S2 Gastrointestinal: soft, non-tender, no distention, positive bowel sounds Neurological: moves all 4 limbs Psychiatric: normal affect, A&O x 3 Dx/Plan (1) DKA (diabetic ketoacidosis) Code(s): E13.10 - OTH DIABETES MELLITUS WITH KETOACIDOSIS WITHOUT COMA Status : Acute Comment: AG resolved, but bicarb remains low. Follow DKA protocol. (2) Hypokalemia Code(s): E87.6 - HYPOKALEMIA Status: Acute Comment: replace potassium per protocol (3) Acute worsening of stage 3 chronic kidney disease Code(s): N18.3 - CHRONIC KIDNEY DISEASE, STAGE 3 (MODERATE) Status: Acute Comment: Improved, recheck creatinine (4) HTN (hypertension) Code(s): I10 - ESSENTIAL (PRIMARY) HYPERTENSION Status: Chronic Qualifiers: Hypertension type: essential hypertension Qualified Code(s): I10 - Essential (primary) hypertension Comment: Stable - Plan * . Review of Systems - Review of Systems Constitutional: negative: fever, chills, sweats, weakness, malaise Respiratory: negative: Cough, Shortness of Breath, SOB with Excertion, Pleuritic Pain, Wheezing Cardiovascular: negative: chest pain, palpitations, orthopnea, paroxysmal nocturnal dyspnea, edema, light headedness Gastrointestinal: Nausea. negative: Vomiting, Abdominal Pain, Diarrhea, Constipation, Melena, Hematochezia Genitourinary: negative: Dysuria, Frequency, Incontinence, Hematuria, Retention - Medications/Allergies Allergies/Adverse Reactions: Allergies Allergy/AdvReac Type Severity Reaction Status Date / Time No Known Allergies Allergy Verified 11/22/17 21:21 Medications: Current Medications Acetaminophen (Tylenol Elixir) 650 mg PO Q6H PRN PRN Reason: Fever > 101 or Mild Pain Heparin Sodium (Porcine) (Heparin) 5,000 units SC TID [facility] Last Admin: 12/06/17 09:20 Dose: 5,000 units Dextrose/Sodium Chloride (D5 1/2 Ns) 1,000 mls @ 250 mls/hr IV .Q4H PRN; Protocol PRN Reason: Step 4 of DKA Protocol Potassium Chloride/Dextrose/Sod Cl (D5 1/2 Ns W/20 Meq Kcl) 1,000 mls @ 250 mls /hr IV .Q4H PRN; Protocol PRN Reason: Step 4 of DKA Protocol Last Admin: 12/06/17 12:05 Dose: 1,000 mls Insulin Human Regular 100 (units/ Sodium Chloride) 101 mls @ 0 mls/hr IVPB INF NAYELI; Titrate PRN Reason: Protocol Last Admin: 12/06/17 12:06 Dose: 101 mls Sodium Chloride (Normal Saline 0.9%) 1,000 mls @ 500 mls/hr IV .Q2H PRN; Protocol PRN Reason: Step 1 of DKA Protocol Sodium Chloride (Normal Saline 0.9%) 1,000 mls @ 1,000 mls/hr IV .Q1H PRN; Protocol PRN Reason: Step 1 of DKA Protocol Sodium Chloride (Normal Saline 0.9%) 1,000 mls @ 250 mls/hr IV .Q4H PRN; Protocol PRN Reason: SEE STEP 3 OF DKA PROTOCOL Sodium Chloride (Normal Saline 0.9%) 1,000 mls @ 500 mls/hr IV .Q2H PRN; Protocol PRN Reason: Step 2 of DKA Protocol Potassium Chloride/Sodium Chloride (Ns 0.9% W/ 20 Meq Kcl) 1,000 mls @ 500 mls/ hr IV .Q2H PRN; Protocol PRN Reason: Step 2 of DKA Protocol Potassium Chloride/Sodium Chloride (Ns 0.9% W/ 20 Meq Kcl) 1,000 mls @ 250 mls/ hr IV .Q4H PRN; Protocol PRN Reason: SEE STEP 3 OF DKA PROTOCOL Potassium Chloride 40 meq/ (Sodium Chloride) 270 mls @ 135 mls/hr IVPB ASDIR PRN PRN Reason: FOR SERUM K+ 2.5 - 3.5 Last Admin: 12/06/17 10:31 Dose: 270 mls Potassium Chloride 40 meq/ (Device) 100 mls @ 50 mls/hr IVPB ASDIR PRN PRN Reason: FOR SERUM K+ 2.5 - 3.5 Magnesium Sulfate 1 gm/ Sodium (Chloride) 102 mls @ 102 mls/hr IV PRN PRN PRN Reason: MAG LEVEL 1.4 - 2.0 Magnesium Sulfate 2 gm/ Device 100 mls @ 100 mls/hr IVPB ASDIR PRN PRN Reason: MAGNESIUM < 1.4 Potassium Phosphate 9 mmol/ (Sodium Chloride) 103 mls @ 25.75 mls/hr IVPB ASDIR PRN PRN Reason: Phosphate 1.0-1.8 Potassium Phosphate 12 mmol/ (Sodium Chloride) 254 mls @ 63.5 mls/hr IV ASDIR PRN PRN Reason: Serum phosphate 0.5-0.9 Potassium Phosphate 15 mmol/ (Sodium Chloride) 255 mls @ 63.75 mls/hr IV ASDIR PRN PRN Reason: Serum Phos < 0.5 Magnesium Oxide (Magnesium Oxide) 400 mg PO BIDPRN PRN PRN Reason: FOR SERUM MAG 1.4 - 2.0 Magnesium Oxide (Magnesium Oxide) 800 mg PO PRN PRN PRN Reason: FOR SERUM MAG < 1.4 Miscellaneous Medication (Ccu Electrolyte Replacement) 1 each IVPB ONE NAYELI Stop: 12/15/17 20:09 Miscellaneous Medication (Phos-Nak) 1 pkt PO TIDPRN PRN PRN Reason: FOR PHOS LEVEL 1.0 - 1.8 Miscellaneous Medication (Phos-Nak) 2 pkt PO TIDPRN PRN PRN Reason: FOR PHOS LEVEL 0.5 - 1.0 Ccu Electrolyte (Replacement Protocol) 0 each FS PRN PRN PRN Reason: FOR ELECTROLYTE REPLACEMENT Ondansetron HCl (Zofran) 4 mg IVP Q6H PRN PRN Reason: Nausea/Vomiting Potassium Chloride (K-Dur) 40 meq PO ASDIR PRN PRN Reason: FOR SERUM K+ 2.5 - 3.5 Potassium Chloride (Klor-Con) 40 meq PER TUBE ASDIR PRN PRN Reason: FOR SERUM K+ 2.5-3.5 Sodium Chloride (Flush - Normal Saline) 10 ml IVF Q12HR NAYELI Last Admin: 12/06/17 08:40 Dose: 10 ml Sodium Chloride (Flush - Normal Saline) 10 ml IVF PRN PRN PRN Reason: Saline Flush
[2017-12-06] MEDS: Sodium Chloride 0.9% 1,000 ML IV SCH (14:20)
--- NOTE | 2017-12-06 14:21 | CON ---
DATE OF CONSULTATION: 12/06/2017 HISTORY: This is a 57-year-old female, 5 feet 4 inches, BMI 29 who has known histor y of diabetes, renal failure, hypertension, to which she presented to the ER with nausea, vomiting, d id not take her medication. She is seeing [facility] for her routine medical care. Apparently as per her description they were not paying attention to her medical needs. MEDICATIONS FROM HOME: Metformin 500 twice a day, glyburide 5 twice a day, Lopressor 25 twice a day, lisinopril 5 a day, 70/30 insulin, 45 twice a day and Tessalon Perles 200 for a cough she has had fo r several months. She says she is having some difficulty breathing, but denies any wheezing, orthopnea or pain. She silva s never smoked. No prior history of TB, pneumonia or bronchial asthma. PAST SURGICAL HISTORY: None. PAST MEDICAL HISTORY: As noted, pertinent for apparently diabetes, renal failure, hypertension, coug h. ALLERGIES: Apparently none. SURGERIES: None. REVIEW OF SYSTEMS: Otherwise, 10-point negative. PHYSICAL EXAMINATION: GENERAL: Awake, alert, responsive. She is hungry. She has not had any diet. VITAL SIGNS: Pulse 84, blood pressure 118/86, sats are 99%, respirations 13. CHEST: Reveals decreased breath sounds without any wheezing. CARDIAC: Normal S1, S2, no gallops. ABDOMEN: Soft. No masses. LABORATORY AND X-RAY FINDINGS: Chest x-ray was normal. Lab shows a sodium 134, potassium is 3. Creatinine 1.5, glucose is 219. She had a blood gas done wh ich showed a pH of 7.45 and a bicarbonate of 16. Bicarbonate today is 21. IMPRESSION: 1. Uncontrolled diabetes. 2. Renal failure. 3. Hypertension. 4. Cough possibly is related to obesity. Switch her over to home medications, insulin 70/30 twice a day, sliding scale and moderate scale. Di et, PT and supportive care, IV fluids. We will follow while in the ICU. This is a consultation note, 70 minutes, 50% spent in direct patient care.
[2017-12-06] MEDS ORDERED: Dextrose 50% Abboject 50 ML SYRINGE IVP PRN (14:42)
[2017-12-06] MEDS ORDERED: Dextrose 5% in Water 1,000 ML IV PRN (14:42)
[2017-12-06] MEDS ORDERED: Insulin NPH/Reg Insulin Hm 300 UNITS/3 ML VIAL SC SCH (14:45)
[2017-12-06] MEDS: Insulin Regular 300 UNITS/3 ML VIAL SC PRN ×2 (16:03→21:18)
[2017-12-06 16:46] LABS: Anion Gap 13 mmol/L (10-20); BUN (Urea Nitrogen) 6 mg/dL (9.8-20.1); Calc. Creatinine Clearance 58 mL/min (70-130); Calcium 8.9 mg/dL (7.8-10.44); Carbon Dioxide 18 mmol/L (22-29); Chloride 107 mmol/L (98-107); Estimated GFR-MDRD 48; Glucose 234 mg/dL (70-105); Potassium 3.8 mmol/L (3.5-5.1); Sodium 134 mmol/L (136-145)
[2017-12-06] MEDS: Insulin NPH/Reg Insulin Hm 300 UNITS/3 ML VIAL SC SCH (21:18)
[2017-12-07] MEDS: Sodium Chloride 0.9% 1,000 ML IV SCH ×2 (01:00→20:46)
[2017-12-07 05:54] LABS: Anion Gap 9 mmol/L (10-20); BUN (Urea Nitrogen) 5 mg/dL (9.8-20.1); Calc. Creatinine Clearance 68 mL/min (70-130); Calcium 8.9 mg/dL (7.8-10.44); Carbon Dioxide 20 mmol/L (22-29); Chloride 111 mmol/L (98-107); Estimated GFR-MDRD 59; Glucose 182 mg/dL (70-105); Potassium 3.1 mmol/L (3.5-5.1); Sodium 137 mmol/L (136-145)
[2017-12-07] MEDS: Insulin Regular 300 UNITS/3 ML VIAL SC PRN (05:54)
[2017-12-07 06:32] LABS: Band 1 % (5-11); Hemoglobin 10.5 g/dL (12.0-16.0); Lymphocytes 47 % (21-51); MDiff Complete? YES; Mean Corpuscular HGB CONC 35.1 g/dL (32.0-36.0); Mean Corpuscular Hemoglobin 28.2 pg (27.0-31.0); Mean Corpuscular Volume 80.5 fl (81.0-99.0); Mean Platelet Volume 8.5 fL (7.4-10.4); Monocytes 2 % (0-10); Neutrophil 50 % (42-75); Platelet Count 140 thou/uL (130-400); RBC Distribution Width 12.8 % (11.5-14.5); Red Blood Cell (RBC) Count 3.73 mill/uL (4.20-5.40); White Blood Cell (WBC) Count 6.5 thou/uL (4.8-10.8)
[2017-12-07] MEDS: Heparin 5,000 UNITS/ML VIAL SC SCH ×3 (08:26→20:44)
[2017-12-07] MEDS: Insulin NPH/Reg Insulin Hm 300 UNITS/3 ML VIAL SC SCH ×2 (08:27→20:43)
--- NOTE | 2017-12-07 09:33 | PRG ---
DATE OF SERVICE: 12/07/2017 This morning she is awake, alert, responsive. PHYSICAL EXAMINATION: VITAL SIGNS: Blood pressure 106/55, sats are 98% on room air, temperature is 97, pulse 95. CHEST: Chest revealed decreased breath sounds, no wheezing. CARDIAC: Normal S1, S2, no gallops. ABDOMEN: Soft, no masses. Creatinine is 1.16, improved. Glucose 170. White count 6000. IMPRESSION: 1. Uncontrolled diabetes. 2. Mild azotemia, improved. PLAN: The patient was transferred to the [facility]. Insulin was initiated yesterday. She can transfer o ma of the [facility]. Pulmonary Critical Care will follow at a distance.
--- NOTE | 2017-12-07 10:47 | PRG ---
DATE OF SERVICE: 12/07/2017 SUBJECTIVE: This is a 57-year-old lady being seen for acute kidney injury, improving creatinine. De nies any nausea, vomiting, or chest pain. PHYSICAL EXAMINATION: GENERAL: Patient is awake, alert. VITAL SIGNS: Afebrile, pulse 95, breathing 16, blood pressure 119/70. OBJECTIVE: See above. Awake, alert, in no acute distress. GENERAL APPEARANCE AND MENTAL STATUS: Fair. HEAD/NECK: Normocephalic. Atraumatic. EYES: EOMI. No deformity. EARS: Clear. No ulcers. NOSE: Intact. No lesions. MOUTH: Clear. No discharge. THROAT: Clear. No exudate. LUNGS: Clear. No crackles. CARDIAC: S1, S2. No rub. ABDOMEN: Benign. BS+. GENITALIA/RECTUM: Bhatti absent. BACK/EXTREMITIES: Edema 0+ Ulcer- NEUROLOGICAL: Alert and motor intact. SKIN: Rash- Bruise- LYMPHATICS: Edema- Ulcer- LABORATORY: CHEST: Hemoglobin 10.5. Potassium 3.1, creatinine 1.1. ASSESSMENT AND RECOMMENDATIONS: 1. Acute kidney injury, improved. 2. Chronic kidney disease stage 3, stable. 3. Hypertension, stable. 4. Hypokalemia. Recommend high potassium diet and 40 mEq potassium. No indication for dialysis. I will sign off. The patient will follow up to see me in 1 month.
--- NOTE | 2017-12-07 14:49 | PDOC.PN ---
- Subjective Encounter Start Date: 12/07/17 Encounter Start Time: 07:40 Pt seen for followup re: DKA. Feels better. Denies chest pain, shortness of breath, fevers or chills. - Objective Resuscitation Status: Resuscitation Status FULL:Full Resuscitation MAR Reviewed: Yes Vital Signs & Weight: Vital Signs (12 hours) Temp Pulse Resp BP BP Pulse Ox 12/07/17 11:16 98.3 F 101 H 14 91/68 99 12/07/17 07:45 97.9 F 95 11 L 98 12/07/17 07:31 97.9 F 95 11 L 106/55 L 98 12/07/17 04:00 97.9 F 85 16 101/52 L 99 Weight Weight 174 lb 2.643 oz Most Recent Monitor Data Heart Rate from ECG 88 NIBP 111/80 NIBP BP-Mean 86 Respiration from ECG 14 SpO2 98 I&O: 12/06/17 12/07/17 12/08/17 06:59 06:59 06:59 Intake Total 3742.7 4838 Output Total 1000 4900 Balance 2742.7 -62 Result Diagrams: 12/09/17 03:44 12/09/17 03:44 Additional Labs: Accuchecks 12/07/17 12/07/17 12/06/17 10:52 05:56 21:20 POC Glucose 215 H 170 H 290 H 12/06/17 16:00 POC Glucose 222 H EKG Reviewed by me: Yes (Tele: NSR) Phys Exam - Physical Examination Constitutional: NAD HEENT: moist MMs, sclera anicteric, oral pharynx no lesions, 2+ tonsils Neck: no nodes, no JVD, supple, full ROM Respiratory: no wheezing, no rales, no rhonchi, clear to auscultation bilateral Cardiovascular: RRR, no rub S1, s2 Gastrointestinal: soft, non-tender, no distention, positive bowel sounds Neurological: moves all 4 limbs Psychiatric: normal affect, A&O x 3 Dx/Plan (1) DKA (diabetic ketoacidosis) Code(s): E13.10 - OTH DIABETES MELLITUS WITH KETOACIDOSIS WITHOUT COMA Status : Resolved (2) Hypokalemia Code(s): E87.6 - HYPOKALEMIA Status: Acute Comment: replace potassium (3) Acute worsening of stage 3 chronic kidney disease Code(s): N18.3 - CHRONIC KIDNEY DISEASE, STAGE 3 (MODERATE) Status: Resolved (4) HTN (hypertension) Code(s): I10 - ESSENTIAL (PRIMARY) HYPERTENSION Status: Chronic Qualifiers: Hypertension type: essential hypertension Qualified Code(s): I10 - Essential (primary) hypertension Comment: controlled and at goal - Plan * . Review of Systems - Review of Systems Respiratory: negative: Cough, Shortness of Breath, SOB with Excertion, Pleuritic Pain, Wheezing Cardiovascular: negative: chest pain, palpitations, orthopnea, paroxysmal nocturnal dyspnea, edema, light headedness - Medications/Allergies Allergies/Adverse Reactions: Allergies Allergy/AdvReac Type Severity Reaction Status Date / Time No Known Allergies Allergy Verified 11/22/17 21:21 Medications: Current Medications Acetaminophen (Tylenol Elixir) 650 mg PO Q6H PRN PRN Reason: Fever > 101 or Mild Pain Dextrose/Water (Dextrose 50%) 25 gm IVP PRN PRN PRN Reason: HYPOGLYCEMIA PROTOCOL Glucagon (Glucagon) 1 mg IM PRN PRN PRN Reason: HYPOGLYCEMIA PROTOCOL Heparin Sodium (Porcine) (Heparin) 5,000 units SC TID [facility] Last Admin: 12/07/17 08:26 Dose: 5,000 units Dextrose/Sodium Chloride (D5 1/2 Ns) 1,000 mls @ 250 mls/hr IV .Q4H PRN; Protocol PRN Reason: Step 4 of DKA Protocol Potassium Chloride/Dextrose/Sod Cl (D5 1/2 Ns W/20 Meq Kcl) 1,000 mls @ 250 mls /hr IV .Q4H PRN; Protocol PRN Reason: Step 4 of DKA Protocol Last Admin: 12/06/17 12:05 Dose: 1,000 mls Sodium Chloride (Normal Saline 0.9%) 1,000 mls @ 500 mls/hr IV .Q2H PRN; Protocol PRN Reason: Step 1 of DKA Protocol Sodium Chloride (Normal Saline 0.9%) 1,000 mls @ 1,000 mls/hr IV .Q1H PRN; Protocol PRN Reason: Step 1 of DKA Protocol Sodium Chloride (Normal Saline 0.9%) 1,000 mls @ 250 mls/hr IV .Q4H PRN; Protocol PRN Reason: SEE STEP 3 OF DKA PROTOCOL Sodium Chloride (Normal Saline 0.9%) 1,000 mls @ 500 mls/hr IV .Q2H PRN; Protocol PRN Reason: Step 2 of DKA Protocol Potassium Chloride/Sodium Chloride (Ns 0.9% W/ 20 Meq Kcl) 1,000 mls @ 500 mls/ hr IV .Q2H PRN; Protocol PRN Reason: Step 2 of DKA Protocol Potassium Chloride/Sodium Chloride (Ns 0.9% W/ 20 Meq Kcl) 1,000 mls @ 250 mls/ hr IV .Q4H PRN; Protocol PRN Reason: SEE STEP 3 OF DKA PROTOCOL Potassium Chloride 40 meq/ (Sodium Chloride) 270 mls @ 135 mls/hr IVPB ASDIR PRN PRN Reason: FOR SERUM K+ 2.5 - 3.5 Last Admin: 12/06/17 10:31 Dose: 270 mls Potassium Chloride 40 meq/ (Device) 100 mls @ 50 mls/hr IVPB ASDIR PRN PRN Reason: FOR SERUM K+ 2.5 - 3.5 Magnesium Sulfate 1 gm/ Sodium (Chloride) 102 mls @ 102 mls/hr IV PRN PRN PRN Reason: MAG LEVEL 1.4 - 2.0 Magnesium Sulfate 2 gm/ Device 100 mls @ 100 mls/hr IVPB ASDIR PRN PRN Reason: MAGNESIUM < 1.4 Potassium Phosphate 9 mmol/ (Sodium Chloride) 103 mls @ 25.75 mls/hr IVPB ASDIR PRN PRN Reason: Phosphate 1.0-1.8 Potassium Phosphate 12 mmol/ (Sodium Chloride) 254 mls @ 63.5 mls/hr IV ASDIR PRN PRN Reason: Serum phosphate 0.5-0.9 Potassium Phosphate 15 mmol/ (Sodium Chloride) 255 mls @ 63.75 mls/hr IV ASDIR PRN PRN Reason: Serum Phos < 0.5 Sodium Chloride (Normal Saline 0.9%) 1,000 mls @ 100 mls/hr IV .Q10H [facility] Last Admin: 12/07/17 01:00 Dose: 1,000 mls Dextrose/Water (D5w) 1,000 mls @ 0 mls/hr IV INF PRN; As Directed PRN Reason: HYPOGLYCEMIA PROTOCOL Insulin Human Isoph/Insulin Regular (Humulin 70/30) 20 units SC BID [facility] Last Admin: 12/07/17 08:27 Dose: 20 unit Insulin Human Regular (Humulin R) 0 units SC .MODERATE SLIDING SC PRN; Protocol PRN Reason: MODERATE SLIDING SCALE Last Admin: 12/07/17 05:54 Dose: 2 unit Magnesium Oxide (Magnesium Oxide) 400 mg PO BIDPRN PRN PRN Reason: FOR SERUM MAG 1.4 - 2.0 Magnesium Oxide (Magnesium Oxide) 800 mg PO PRN PRN PRN Reason: FOR SERUM MAG < 1.4 Miscellaneous Medication (Ccu Electrolyte Replacement) 1 each IVPB ONE NAYELI Stop: 12/15/17 20:09 Miscellaneous Medication (Phos-Nak) 1 pkt PO TIDPRN PRN PRN Reason: FOR PHOS LEVEL 1.0 - 1.8 Miscellaneous Medication (Phos-Nak) 2 pkt PO TIDPRN PRN PRN Reason: FOR PHOS LEVEL 0.5 - 1.0 Ccu Electrolyte (Replacement Protocol) 0 each FS PRN PRN PRN Reason: FOR ELECTROLYTE REPLACEMENT Ondansetron HCl (Zofran) 4 mg IVP Q6H PRN PRN Reason: Nausea/Vomiting Potassium Chloride (K-Dur) 40 meq PO ASDIR PRN PRN Reason: FOR SERUM K+ 2.5 - 3.5 Potassium Chloride (Klor-Con) 40 meq PER TUBE ASDIR PRN PRN Reason: FOR SERUM K+ 2.5-3.5 Sodium Chloride (Flush - Normal Saline) 10 ml IVF Q12HR NAYELI Last Admin: 12/07/17 08:27 Dose: Not Given Sodium Chloride (Flush - Normal Saline) 10 ml IVF PRN PRN PRN Reason: Saline Flush
[2017-12-07] MEDS: Potassium Chloride 20 MEQ TAB PO SCH ×2 (15:49→20:46)
[2017-12-08 04:49] LABS: Anion Gap 11 mmol/L (10-20); BUN (Urea Nitrogen) 4 mg/dL (9.8-20.1); Calc. Creatinine Clearance 76 mL/min (70-130); Calcium 9.4 mg/dL (7.8-10.44); Carbon Dioxide 22 mmol/L (22-29); Chloride 106 mmol/L (98-107); Estimated GFR-MDRD 67; Glucose 274 mg/dL (70-105); Potassium 3.4 mmol/L (3.5-5.1); Sodium 136 mmol/L (136-145)
[2017-12-08 04:58] LABS: Band 1 % (5-11); Eosinophils 2 % (0-10); Hemoglobin 10.6 g/dL (12.0-16.0); Lymphocytes 55 % (21-51); MDiff Complete? YES; Mean Corpuscular HGB CONC 35.5 g/dL (32.0-36.0); Mean Corpuscular Hemoglobin 28.4 pg (27.0-31.0); Mean Corpuscular Volume 79.9 fl (81.0-99.0); Mean Platelet Volume 8.4 fL (7.4-10.4); Monocytes 3 % (0-10); Neutrophil 35 % (42-75); Platelet Count 138 thou/uL (130-400); Reactive Lymphocytes 4 % (0-10); Red Blood Cell (RBC) Count 3.75 mill/uL (4.20-5.40); White Blood Cell (WBC) Count 5.6 thou/uL (4.8-10.8)
[2017-12-08] MEDS: Sodium Chloride 0.9% 1,000 ML IV SCH ×2 (05:34→13:34)
[2017-12-08] MEDS: Diabetic Tussin 200 MG/10 ML UDCUP PO PRN ×2 (06:20→15:12)
[2017-12-08] MEDS: Insulin NPH/Reg Insulin Hm 300 UNITS/3 ML VIAL SC SCH ×2 (09:01→19:50)
[2017-12-08] MEDS: Heparin 5,000 UNITS/ML VIAL SC SCH ×3 (09:01→19:52)
[2017-12-08] MEDS ORDERED: HumaLOG 300 UNITS/3 ML VIAL SC PRN (12:56)
[2017-12-08] MEDS: HumaLOG 300 UNITS/3 ML VIAL SC PRN ×2 (13:33→17:35)
--- NOTE | 2017-12-08 13:34 | PDOC.PN ---
- Subjective Encounter Start Date: 12/08/17 Encounter Start Time: 08:20 Pt seen for followup re: nausea and vomiting. Continues to be nauseous. - Objective Resuscitation Status: Resuscitation Status FULL:Full Resuscitation MAR Reviewed: Yes Vital Signs & Weight: Vital Signs (12 hours) Temp Pulse Resp BP Pulse Ox 12/08/17 08:36 98.3 F 84 20 134/84 94 L 12/08/17 08:00 98.3 F 84 20 94 L 12/08/17 05:22 98.2 F 84 18 115/76 95 Weight Weight 184 lb 1 oz Most Recent Monitor Data Heart Rate from ECG 88 NIBP 111/80 NIBP BP-Mean 86 Respiration from ECG 14 SpO2 98 I&O: 12/07/17 12/08/17 12/09/17 06:59 06:59 06:59 Intake Total 4838 240 Output Total 4900 Balance -62 240 Result Diagrams: 12/08/17 04:04 12/08/17 04:04 Additional Labs: Accuchecks 12/08/17 12/08/17 12/07/17 11:11 04:38 20:44 POC Glucose 314 H 299 H 490 H 12/07/17 17:08 POC Glucose 272 H labs reviewed by me Phys Exam - Physical Examination Obese HEENT: moist MMs, sclera anicteric, oral pharynx no lesions, 2+ tonsils Neck: no nodes, no JVD, supple, full ROM Respiratory: no wheezing, no rales, no rhonchi, clear to auscultation bilateral Cardiovascular: RRR, no rub S1, s2 Gastrointestinal: soft, non-tender, no distention, positive bowel sounds Neurological: moves all 4 limbs Psychiatric: normal affect, A&O x 3 Dx/Plan (1) Nausea and vomiting Code(s): R11.2 - NAUSEA WITH VOMITING, UNSPECIFIED Status: Acute Comment: Continue PRN Zofran (2) Hypokalemia Code(s): E87.6 - HYPOKALEMIA Status: Acute Comment: replace potassium (3) HTN (hypertension) Code(s): I10 - ESSENTIAL (PRIMARY) HYPERTENSION Status: Chronic Qualifiers: Hypertension type: essential hypertension Qualified Code(s): I10 - Essential (primary) hypertension Comment: controlled and at goal (4) DM2 (diabetes mellitus, type 2) Status: Chronic Qualifiers: 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 (5) DKA (diabetic ketoacidosis) Code(s): E13.10 - OTH DIABETES MELLITUS WITH KETOACIDOSIS WITHOUT COMA Status : Resolved (6) Acute worsening of stage 3 chronic kidney disease Code(s): N18.3 - CHRONIC KIDNEY DISEASE, STAGE 3 (MODERATE) Status: Resolved - Plan * . Review of Systems - Review of Systems Constitutional: weakness. negative: fever, chills, sweats, malaise Cardiovascular: negative: chest pain, palpitations, orthopnea, paroxysmal nocturnal dyspnea, edema, light headedness Gastrointestinal: Nausea, Vomiting. negative: Abdominal Pain, Diarrhea, Constipation, Melena, Hematochezia Genitourinary: negative: Dysuria, Frequency, Incontinence, Hematuria, Retention Skin: negative: Rash, Lesions, Mars, Bruising - Medications/Allergies Allergies/Adverse Reactions: Allergies Allergy/AdvReac Type Severity Reaction Status Date / Time No Known Allergies Allergy Verified 11/22/17 21:21 Medications: Current Medications Acetaminophen (Tylenol Elixir) 650 mg PO Q6H PRN PRN Reason: Fever > 101 or Mild Pain Dextrose/Water (Dextrose 50%) 25 gm IVP PRN PRN PRN Reason: HYPOGLYCEMIA PROTOCOL Glucagon (Glucagon) 1 mg IM PRN PRN PRN Reason: HYPOGLYCEMIA PROTOCOL Guaifenesin (Robitussin Sf) 200 mg PO Q4H PRN PRN Reason: Cough Last Admin: 12/08/17 06:20 Dose: 200 mg Heparin Sodium (Porcine) (Heparin) 5,000 units SC TID NAYELI Last Admin: 12/08/17 09:01 Dose: 5,000 units Magnesium Sulfate 2 gm/ Device 100 mls @ 100 mls/hr IVPB ASDIR PRN PRN Reason: MAGNESIUM < 1.4 Sodium Chloride (Normal Saline 0.9%) 1,000 mls @ 100 mls/hr IV .Q10H NAYELI Last Admin: 12/08/17 13:34 Dose: 1,000 mls Insulin Human Isoph/Insulin Regular (Humulin 70/30) 20 units SC BID [facility] Last Admin: 12/08/17 09:01 Dose: 20 unit Insulin Human Lispro (Humalog) 0 units SC .MODERATE SLIDING SC PRN; Protocol PRN Reason: MODERATE SLIDING SCALE Last Admin: 12/08/17 13:33 Dose: 8 unit Insulin Human Lispro (Humalog) 0 units SC .BEDTIME SLIDING SC PRN; Protocol PRN Reason: BEDTIME SLIDING SCALE Ondansetron HCl (Zofran) 4 mg IVP Q6H PRN PRN Reason: Nausea/Vomiting Potassium Chloride (K-Dur) 40 meq PO ONE [facility] Sodium Chloride (Flush - Normal Saline) 10 ml IVF Q12HR [facility] Last Admin: 12/08/17 09:01 Dose: Not Given Sodium Chloride (Flush - Normal Saline) 10 ml IVF PRN PRN PRN Reason: Saline Flush
[2017-12-08] MEDS ORDERED: Potassium Chloride 20 MEQ TAB PO SCH (13:45)
[2017-12-09] MEDS: Sodium Chloride 0.9% 1,000 ML IV SCH ×2 (04:42→10:37)
[2017-12-09 04:49] LABS: #Basophils 0.1 thou/uL (0.0-0.2); #Eosinphils 0.1 thou/uL (0.0-0.7); #Lymphocytes 2.7 thou/uL (1.20-3.40); #Monocytes 0.4 thou/uL (0.11-0.59); #Neutrophils 2.2 thou/uL (1.40-6.50); %Basophils 1.2 % (0.0-1.0); %Eosinophils 2.2 % (0.0-10.0); %Lymphocytes 49.9 % (21.0-51.0); %Monocytes 6.4 % (0.0-10.0); %Neutrophils 40.3 % (42.0-75.0); Hemoglobin 10.3 g/dL (12.0-16.0); Mean Corpuscular Hemoglobin 27.5 pg (27.0-31.0); Mean Corpuscular Volume 80.7 fl (81.0-99.0); Platelet Count 131 thou/uL (130-400); RBC Distribution Width 13.1 % (11.5-14.5); Red Blood Cell (RBC) Count 3.75 mill/uL (4.20-5.40); White Blood Cell (WBC) Count 5.5 thou/uL (4.8-10.8)
[2017-12-09] MEDS: HumaLOG 300 UNITS/3 ML VIAL SC PRN ×2 (04:55→12:48)
[2017-12-09 05:12] LABS: Anion Gap 11 mmol/L (10-20); BUN (Urea Nitrogen) 7 mg/dL (9.8-20.1); Calc. Creatinine Clearance 76 mL/min (70-130); Calcium 9.3 mg/dL (7.8-10.44); Carbon Dioxide 23 mmol/L (22-29); Chloride 105 mmol/L (98-107); Estimated GFR-MDRD 62; Glucose 346 mg/dL (70-105); Sodium 135 mmol/L (136-145)
[2017-12-09 07:42] VITALS: BP 159/80; TEMP 98.4
[2017-12-09] MEDS: Insulin NPH/Reg Insulin Hm 300 UNITS/3 ML VIAL SC SCH (08:40)
[2017-12-09] MEDS: Heparin 5,000 UNITS/ML VIAL SC SCH (08:40)
[2017-12-09] MEDS: Diabetic Tussin 200 MG/10 ML UDCUP PO PRN (08:45)
--- NOTE | 2017-12-09 17:40 | DIS ---
DATE OF ADMISSION: 12/05/2017 DATE OF DISCHARGE: 12/09/2017 PRIMARY CARE PROVIDER: [facility]. DISCHARGE DIAGNOSES: 1. Diabetic ketoacidosis. 2. Nausea and vomiting. 3. Acute on chronic renal insufficiency. 4. Hypertension. 5. Hypokalemia. 6. Medication noncompliance. CONDITION OF PATIENT ON THE DAY OF DISCHARGE: Stable. I assessed Ms. Georges on the day of discharge. She denies any chest pain or shortness of breath. Vital signs are stable. S1 and S2 are heard, re gular. Lungs are clear to auscultation bilaterally. DISCHARGE MEDICATIONS: Glyburide 5 mg daily, insulin NPH 70/30 20 units 2 times a day, lisinopril 5 mg daily, and Lopressor 25 mg 2 times a day. HOSPITAL COURSE: Mr. Georges is a pleasant 57-year-old lady who was admitted to [facility] on 12/05/2017 for diabetic ketoacidosis secondary to medication noncompliance. She was a dmitted to the Intensive Care Unit and was treated with intravenous fluids and intravenous insulin. She improved clinically as well as biochemically. She was also seen by Nephrology Service for acute on chronic renal insufficiency. Case management also saw the patient because she was unable to afford medications. Arrangements were made to provide her with a short-term supply of medications. She is also being referred to [facility] for further management. Initial plan was to discharge her on 45 units 2 times a day of 70/30 insulin. However, her blood sug ars were trending down, 157 at 1118 hours on 12/09/2017, so the dose of 70/30 insulin was changed to 20 units 2 times a day. She has been advised to check her blood sugars 3 times a day and show the re adings to her primary care provider. On the day of discharge, she has sodium 135, potassium 4, creatinine 1.10, white count 5500, hemoglob in 10.3, and platelet count 131,000. Many thanks for allowing me to participate in your patient's care. Please feel free to contact me wi th any questions or concerns. DISCHARGE DESTINATION: Home. TOTAL AMOUNT OF TIME SPENT COORDINATING THIS DISCHARGE: 33 minutes.
== END 2017-12-09 15:32 | disposition home or self-care (01) | DRG 638 ==
LOC: ERS 16:32 → CCU 20:05 → IMCU/EMU 12-06 20:46 → T4-A 12-07 17:29
PROVIDERS: ADMIT Internal Medicine; ATTEND Internal Medicine
DX: E11.10 Type 2 diabetes mellitus with ketoacidosis without coma (principal); N17.9 Acute kidney failure, unspecified; I12.9 Hypertensive chronic kidney disease with stage 1 through stage 4 chronic kidney disease, or unspecified chronic kidney disease; E11.22 Type 2 diabetes mellitus with diabetic chronic kidney disease; Z91.14 Patient's other noncompliance with medication regimen; E66.9 Obesity, unspecified; Z68.29 Body mass index [BMI] 29.0-29.9, adult; E11.65 Type 2 diabetes mellitus with hyperglycemia; R05 Cough; N18.3 Chronic kidney disease, stage 3 (moderate); D63.1 Anemia in chronic kidney disease; R11.2 Nausea with vomiting, unspecified; E87.6 Hypokalemia; Z79.4 Long term (current) use of insulin; E86.0 Dehydration
CPT/HCPCS: 36415; 36416; 71045; 80048; 80053; 81003; 81015; 82010; 82330; 82553; 82803; 82805; 83690; 83735; 83930; 84100; 84484; 85025; 93005; 96361; 96365; 96366; A4216; J1644; J1815; J3480; J7050

== ENCOUNTER 2018-05-07 10:12 | Inpatient (IN) | payer SELFPAY ==
[2018-05-07 10:51] LABS: Bicarbonate (HCO3v) 13.7 mmol/L (1.0-85.0); CO2 Tension (PvCO2) 30.8 mmHg (41.0-51.0); Calcium, Ionized 1.23 mmol/L (1.12-1.32); Hemoglobin - Calc 15.3 g/dL (12.0-18.0); O2 Tension (PvO2) 55.6 mmHg (35.0-45.0); Potassium 3.9 mmol/L (3.4-4.7); T. Carbon Dioxide 14.7 mmol/L (1.0-85.0); pH (Venous) 7.256 (7.35-7.45); vO2 Saturation-calc 84.3 % (94-98)
[2018-05-07 10:57] LABS: #Basophils 0.1 thou/uL (0.0-0.2); #Eosinphils 0.1 thou/uL (0.0-0.7); #Lymphocytes 2.2 thou/uL (1.20-3.40); #Monocytes 0.4 thou/uL (0.11-0.59); #Neutrophils 4.7 thou/uL (1.40-6.50); %Basophils 1.3 % (0.0-1.0); %Eosinophils 0.9 % (0.0-10.0); %Lymphocytes 29.3 % (21.0-51.0); %Monocytes 5.7 % (0.0-10.0); %Neutrophils 62.8 % (42.0-75.0); Hemoglobin 13.9 g/dL (12.0-16.0); Mean Corpuscular HGB CONC 32.8 g/dL (32.0-36.0); Mean Corpuscular Hemoglobin 27.7 pg (27.0-31.0); Mean Corpuscular Volume 84.2 fL (78.0-98.0); Mean Platelet Volume 9.9 fL (7.4-10.4); Platelet Count 230 thou/uL (130-400); RBC Distribution Width 12.3 % (11.5-14.5); Red Blood Cell (RBC) Count 5.02 mill/uL (4.20-5.40); White Blood Cell (WBC) Count 7.5 thou/uL (4.8-10.8)
[2018-05-07 11:14] LABS: ALT (SGPT) 13 U/L (8-55); AST (SGOT) 9 U/L (5-34); Albumin 3.9 g/dL (3.5-5.0); Alkaline Phosphatase 131 U/L (40-150); Anion Gap 23 mmol/L (10-20); BUN (Urea Nitrogen) 18 mg/dL (9.8-20.1); Bilirubin, Total 0.5 mg/dL (0.2-1.2); Calc. Creatinine Clearance 0 mL/min (70-130); Calcium 9.8 mg/dL (7.8-10.44); Carbon Dioxide 14 mmol/L (22-29); Chloride 98 mmol/L (98-107); Estimated GFR-MDRD 30; Globulin 4.2 g/dL (2.4-3.5); Magnesium 2.2 mg/dL (1.6-2.6); Phosphorus 3.3 mg/dL (2.3-4.7); Protein, Total 8.1 g/dL (6.0-8.3); Sodium 131 mmol/L (136-145)
[2018-05-07 11:21] LABS: Bilirubin Negative (Negative); Blood, Urine Moderate (Negative); Clarity CLEAR (Clear); Glucose, Urine (Dipstick) >=1000 mg/dL (Negative); Leukocyte Negative (Negative); Nitrite Negative (Negative); Protein, Urine (Dipstick) Trace mg/dL (Neg-Trace); Specific Gravity, Urine 1.023 (1.002-1.036); Urobilinogen 0.2 mg/dL (0.2-1.0)
[2018-05-07 11:22] LABS: Glucose 644 mg/dL (70-105)
[2018-05-07 11:23] LABS: Bacteria/HPF None Seen HPF (None Seen); Hyaline Casts/LPF 0-3 HYALINE CAST LPF (0-3 Hyaline); Pathc Cast-AUWi Flag 0.43 (0-2.49); Squamous Epithelial 0-3 HPF (0-3); WBC/HPF 0-3 HPF (0-3)
[2018-05-07 11:38] LABS: Transitional Epithelial 0-3 HPF (0-3)
[2018-05-07] MEDS ORDERED: NS 0.9% w/ 20 MEQ KCL 1,000 ML IV SCH (12:15)
[2018-05-07] MEDS ORDERED: Insulin Regular 100 units/100 ml in NS IVPB SCH (12:15)
[2018-05-07] MEDS ORDERED: Morphine 4 MG/ML VIAL ONE (13:10)
[2018-05-07] MEDS ORDERED: Senokot S 8.6-50 MG TAB PO PRN (13:54)
[2018-05-07] MEDS ORDERED: hydrALAZINE 20 MG/ML VIAL SLOW IVP PRN (13:54)
[2018-05-07] MEDS ORDERED: Nitroglycerin 0.4 MG TAB (25 Tab Bottle) SL PRN (13:54)
[2018-05-07] MEDS ORDERED: NS 0.9% w/ 20 MEQ KCL 1,000 ML IV PRN ×2 (13:54)
[2018-05-07] MEDS ORDERED: cloNIDine 0.1 MG TAB PO PRN (13:54)
[2018-05-07] MEDS ORDERED: Bisacodyl 5 MG TAB PO PRN (13:54)
[2018-05-07] MEDS ORDERED: Sodium Chloride 0.65% Nasal 44 ML BOT EA NARE PRN (13:54)
[2018-05-07] MEDS ORDERED: Dextrose 5 %-0.45 % NaCl 1,000 ML IV PRN (13:54)
[2018-05-07] MEDS ORDERED: Sodium Chloride 0.9% 1,000 ML IV PRN ×4 (13:54)
[2018-05-07] MEDS ORDERED: Diabetic Tussin 200 MG/10 ML UDCUP PO PRN (13:54)
[2018-05-07] MEDS ORDERED: CCU Electrolyte Replacement 1 EACH IVPB ONE (13:54)
[2018-05-07] MEDS ORDERED: D5 1/2 NS w/20 mEq KCL 1,000 ML IV PRN (13:54)
[2018-05-07] MEDS ORDERED: Benzonatate 100 MG CAP PO PRN (13:54)
[2018-05-07] MEDS ORDERED: Ondansetron PF 4 MG/2 ML Vial IVP PRN (13:54)
[2018-05-07] MEDS ORDERED: Potassium Phosphate 9 MMOL in Sodium Chloride 0.9% 100 ML IVPB PRN (14:31)
[2018-05-07] MEDS ORDERED: Potassium Phosphate 15 MMOL in Sodium Chloride 0.9% 250 ML 250 ML IV PRN (14:31)
[2018-05-07] MEDS ORDERED: Potassium Chloride 40 MEQ in Premix Bag 1 BAG IVPB PRN (14:31)
[2018-05-07] MEDS ORDERED: Magnesium Oxide 400 MG TAB PO PRN ×2 (14:31)
[2018-05-07] MEDS ORDERED: CCU ELECTROLYTE REPLACEMENT PROTOCOL FS PRN (14:31)
[2018-05-07] MEDS ORDERED: Potassium Chloride 20 MEQ TAB PO PRN (14:31)
[2018-05-07] MEDS ORDERED: Potassium Phosphate 12 MMOL in Sodium Chloride 0.9% 250 ML 250 ML IV PRN (14:31)
[2018-05-07] MEDS ORDERED: Magnesium 2 GM/NS 0.9% 100 ML 2 GM in Premix Bag 1 BAG IVPB PRN (14:31)
[2018-05-07] MEDS ORDERED: Potassium Chloride 40 MEQ in Sodium Chloride 0.9% 250 ML 250 ML IVPB PRN (14:31)
[2018-05-07 14:38] LABS: Magnesium 2.1 mg/dL (1.6-2.6); Phosphorus 2.5 mg/dL (2.3-4.7)
[2018-05-07 14:43] VITALS: BMI 29.7
[2018-05-07 14:43] LABS: Anion Gap 21 mmol/L (10-20); BUN (Urea Nitrogen) 18 mg/dL (9.8-20.1); Calc. Creatinine Clearance 44 mL/min (70-130); Calcium 9.5 mg/dL (7.8-10.44); Carbon Dioxide 13 mmol/L (22-29); Chloride 106 mmol/L (98-107); Estimated GFR-MDRD 36; Glucose 517 mg/dL (70-105); Potassium 3.8 mmol/L (3.5-5.1); Sodium 136 mmol/L (136-145)
--- NOTE | 2018-05-07 15:12 | HP ---
DATE OF ADMISSION: 05/07/2018 PRIMARY CARE PHYSICIAN: Dr. Anjali Benson. CHIEF COMPLAINT: Urinary frequency, dizziness, high blood sugar, nausea and vomiting. HISTORY OF PRESENTING ILLNESS: Ms. Georges is a pleasant 58-year-old female with known history of diab etes mellitus, insulin-dependent, as well as hypertension in multiple hospitalizations for DKA, prese nted to the emergency room with the above-mentioned complaint. History is mainly obtained by the pat ient herself and electronic medical records have been reviewed. Case has been discussed with [facility] physician, Dr. Pendleton. Ms. Georges reports that since her last discharge from the hospital in 12/2017, she has not been able t o take her insulin. She ran out of the prescriptions provided at that time and has been unable to fo llow up with the primary care physician as a primary care physician was on maternity leave according to her. She also ran out of her blood pressure medications and has noted that she has been feeling p oorly. For the last 2 days, she feels that her high blood pressure and high blood sugar. She noticed increa sing urinary frequency and nausea as well as abdominal pain. Other than that, she denies any recent illnesses. No fever, chills, diarrhea. She denies any dysuria, frequency. Upon presentation to the emergency room, she was significantly hyperglycemic with a blood sugar was 6 44. BUN 18, creatinine 2.08 and all the lab abnormalities consistent with diabetic ketoacidosis with elevated beta hydroxybutyrate and high anion gap metabolic acidosis. She was started on IV fluids a nd IV insulin and is now being admitted to [facility] for diabetic ketoacidosis. PAST MEDICAL HISTORY: 1. Diabetes mellitus type 2, insulin-dependent. 2. Multiple hospitalizations for diabetic ketoacidosis. 3. Chronic kidney disease. 4. Essential hypertension. 5. Medication noncompliance. PAST SURGICAL HISTORY: None. SOCIAL HISTORY: She lives with a daughter and has no history of drug, tobacco or alcohol abuse. FAMILY HISTORY: No significant family history of any premature coronary artery disease or stroke. H er mother has history of hypertension. Father has diabetes and hypertension. HOME MEDICATIONS: None. ALLERGIES: None. REVIEW OF SYSTEMS: A 12-point review of systems was done and is negative except for those mentioned in the history and physical. LABORATORY DATA: CBC is unremarkable. VBG shows pH of 7.2. Serum chemistry shows bicarbonate 14, a nion gap of 23, blood sugar most recent 454. Urinalysis showed glucosuria and ketones as well as rbc 's. Beta hydroxybutyrate 9.36. PHYSICAL EXAMINATION: VITAL SIGNS: Upon presentation to the ER, blood pressure 127/84, pulse of 90, saturating 97% on room air, respirations 18, temperature 98.7. GENERAL: She looks weak and tired, but in no acute distress. Appears well nourished and well-built. Awake, alert, oriented x3. HEENT: Mucous membranes are slightly dry. No oropharyngeal exudate or erythema. Head is normocepha lic, atraumatic. Pupils are equal, reactive to light and accommodation. Extraocular movement intact . NECK: Supple without any lymphadenopathy, JVD or bruit. CHEST: Clear to auscultation without any wheezing, rales or rhonchi. Rate and rhythm is regular wit hout any murmur, rubs or gallops. ABDOMEN: Obese, soft, nondistended, mildly tender to palpation in all 4 quadrants. Bowel sounds hea rd equally all over in 4 quadrants. EXTREMITIES: Show trace pitting edema bilaterally. NEUROLOGIC: Nonfocal. SKIN: Free of any rashes or bruises. Feels warm and dry to touch. PSYCHIATRIC: Normal affect. IMPRESSION AND PLAN: 1. Diabetic ketoacidosis. The patient will be treated per the DKA protocol with IV fluids and IV in sulin. She will be n.p.o. for now and we will monitor BMP q.4 hours and Accu-Cheks every 1 hour for now per the protocol. She will be admitted to [facility]. Medication compliance was discussed with the nica griffin and she would need prescription refills at the time of discharge. 2. Acute on chronic kidney injury secondary to acidosis as well as dehydration from hyperglycemia. Continue IV fluids and avoid any nephrotoxic medications. We will hold her lisinopril for now. 3. Hypertension, currently well controlled. We will reintroduce a beta radhames that she was dischar [facility] on in December and monitor the response and titrate according to the response. 4. Diabetes mellitus type 2 as #1 medication compliance on discharge. 5. Anion gap metabolic acidosis secondary to diabetic ketoacidosis. 6. Deep venous thrombosis and gastrointestinal prophylaxis. 7. Add p.r.n. medication order. DISPOSITION: Ms. Georges is currently being admitted to IM for diabetic ketoacidosis. Estimated rena gth of stay at least 2-3 midnights. Further management will depend upon her clinical course.
[2018-05-07] MEDS ORDERED: Potassium Chloride 20 MEQ TAB PO SCH (16:15)
[2018-05-07] MEDS: Dextrose 5 %-0.45 % NaCl 1,000 ML IV SCH (17:19)
--- NOTE | 2018-05-07 19:17 | CON ---
DATE OF CONSULTATION: 05/07/2018 SERVICE: Pulmonary Medicine. REASON FOR CONSULTATION: IMCU patient. HISTORY OF PRESENT ILLNESS: The patient is a 58-year-old female with past medical h istory significant for type 2 diabetes mellitus. She is supposed to be on insulin, but frequently it interrupts therapy. A couple of months ago, she ran out, never got it refilled. Ultimately, she __ ___ cost issues as the reason for being noncompliant. She started having increasing fatigue, malaise , lack of energy and then developed nausea and some vomiting. She was unable to keep any p.o. down a nd presented to the Emergency Department. She was discovered to have findings consistent with diabet ic ketoacidosis. She denies any current fevers or chills, sputum production, diarrhea, arthralgia, r ashes. Otherwise, she was in her usual state of health. Just feels very similar to prior episodes o f DKA. PAST MEDICAL HISTORY: 1. Type 2 diabetes mellitus. 2. Chronic kidney disease. 3. Hypertension. 4. Medical noncompliance. PAST SURGICAL HISTORY: None. SOCIAL HISTORY: Negative for alcohol, tobacco or illicit drug use. No exposure to chemicals, dust, asbestos or tuberculosis. FAMILY HISTORY: Noncontributory. ALLERGIES: No known drug allergies. MEDICATIONS: List of her inpatient medications was reviewed. No specific updates were made at this time. REVIEW OF SYSTEMS: General, head, ears, eyes, nose, throat, cardiovascular, respiratory, GI, , mus culoskeletal, neurologic and skin is negative except as mentioned in the HPI. PHYSICAL EXAMINATION: VITAL SIGNS: Afebrile, pulse 90, blood pressure 130/80, respirations 16, saturation 100% on room air . GENERAL: The patient is awake and alert, in no apparent distress. LUNGS: Decent air entry. There is no prolonged expiratory phase, wheezing, rhonchi or crackles pres ent. HEART: Normal rate, regular. ABDOMEN: Soft, nontender, nondistended. Bowel sounds are positive. MUSCULOSKELETAL: No cyanosis or clubbing. There is skin tenting throughout. GENITOURINARY: No Bhatti. NEUROLOGIC: Grossly nonfocal. LABORATORY DATA: CBC is completely unremarkable with a normal differential. PH 7.25, pCO2 31. Crea tinine 1.77 and down trending. Basic metabolic profile is otherwise unremarkable. Potassium is decr easing to 3.8. Magnesium and phosphorus fall within the normal limits. Liver function studies are u nremarkable. Blood sugar is 454 and gently down trending. Urinalysis is positive for glycosuria, ke tonuria and moderate red blood cells. Beta hydroxybutyric acid 9.36. ASSESSMENT: 1. Diabetic ketoacidosis. 2. Type 2 diabetes mellitus. 3. Medical noncompliance. 4. Acute kidney injury, improving. DISCUSSION AND PLAN: We will drop her IV fluids over to D5 half at 125 an hour. We will jamin nue her insulin drip overnight. In 24 hours, if her gap is closed, she will be considered for transi tion out of the IMCU or even home. I have performed 8 minutes of counseling regarding her need to ma ke continued efforts at staying on insulin in the outpatient setting. A dose of potassium will be pr ovided to prevent hypokalemia.
[2018-05-07 19:34] LABS: Chloride 110 mmol/L (98-107); Potassium 3.6 mmol/L (3.5-5.1); Sodium 136 mmol/L (136-145)
[2018-05-07 19:35] LABS: Glucose 271 mg/dL (70-105)
[2018-05-07 19:37] LABS: Anion Gap 11 mmol/L (10-20); Carbon Dioxide 19 mmol/L (22-29)
[2018-05-07 19:38] LABS: Calc. Creatinine Clearance 52 mL/min (70-130); Estimated GFR-MDRD 43
[2018-05-07 19:39] LABS: BUN (Urea Nitrogen) 12 mg/dL (9.8-20.1)
[2018-05-07 22:41] LABS: Anion Gap 10 mmol/L (10-20); BUN (Urea Nitrogen) 11 mg/dL (9.8-20.1); Calc. Creatinine Clearance 53 mL/min (70-130); Calcium 9.3 mg/dL (7.8-10.44); Carbon Dioxide 19 mmol/L (22-29); Chloride 113 mmol/L (98-107); Estimated GFR-MDRD 45; Glucose 208 mg/dL (70-105); Potassium 3.7 mmol/L (3.5-5.1); Sodium 138 mmol/L (136-145)
[2018-05-07] MEDS: HYDROcodone/Acetaminophen 5/325 mg Tablet PO PRN (22:49)
[2018-05-08] MEDS: Dextrose 5 %-0.45 % NaCl 1,000 ML IV SCH ×2 (02:12→10:28)
[2018-05-08 04:09] LABS: Anion Gap 7 mmol/L (10-20); BUN (Urea Nitrogen) 10 mg/dL (9.8-20.1); Calc. Creatinine Clearance 57 mL/min (70-130); Calcium 9.5 mg/dL (7.8-10.44); Carbon Dioxide 20 mmol/L (22-29); Chloride 112 mmol/L (98-107); Estimated GFR-MDRD 48; Glucose 171 mg/dL (70-105); Potassium 3.4 mmol/L (3.5-5.1); Sodium 136 mmol/L (136-145)
[2018-05-08] MEDS: HYDROcodone/Acetaminophen 5/325 mg Tablet PO PRN (04:10)
[2018-05-08] MEDS ORDERED: Dextrose 50% Abboject 50 ML SYRINGE SLOW IVP PRN (08:28)
[2018-05-08] MEDS ORDERED: Dextrose 5% in Water 1,000 ML IV PRN (08:28)
[2018-05-08] MEDS: Insulin NPH/Reg Insulin Hm 300 UNITS/3 ML VIAL SC SCH ×2 (10:14→20:37)
[2018-05-08] MEDS: Potassium Chloride 20 MEQ TAB PO SCH ×2 (10:15→11:04)
[2018-05-08] MEDS: Insulin Regular 300 UNITS/3 ML VIAL SC PRN ×4 (10:54→23:26)
--- NOTE | 2018-05-08 12:13 | PDOC.PN ---
- Subjective Encounter Start Date: 05/08/18 Encounter Start Time: 12:11 Subjective: nsg notes rev, radha ovn, no new c/o, overall feels a little better but still -: overall weak - Objective Vital Signs & Weight: Vital Signs (12 hours) Temp Pulse Resp BP Pulse Ox 05/08/18 11:22 98.5 F 115/65 05/08/18 08:00 97 05/08/18 07:27 97.2 F L 78 17 114/70 96 05/08/18 04:26 98.7 F 88 12 118/85 97 05/08/18 00:29 98.6 F 84 13 129/83 94 L Weight Weight 180 lb 9.6 oz I&O: 05/07/18 05/08/18 05/09/18 06:59 06:59 06:59 Intake Total 3492.2 936 Output Total 500 750 Balance 2992.2 186 Result Diagrams: 05/07/18 10:38 05/08/18 03:23 Additional Labs: Accuchecks 05/08/18 05/08/18 05/08/18 10:39 08:08 07:10 POC Glucose 317 H 129 H 151 H 05/08/18 05/08/18 05/08/18 06:08 05:25 04:03 POC Glucose 137 H 180 H 224 H 05/08/18 05/08/18 05/08/18 02:57 02:07 01:10 POC Glucose 162 H 136 H 131 H 05/07/18 05/07/18 05/07/18 23:58 23:21 22:42 POC Glucose 150 H 181 H 185 H 05/07/18 05/07/18 05/07/18 20:33 18:55 18:02 POC Glucose 279 H 255 H 298 H 05/07/18 05/07/18 05/07/18 17:03 16:05 15:02 POC Glucose 326 H 349 H 400 H 05/07/18 05/07/18 05/07/18 14:19 14:05 13:38 POC Glucose 419 H 454 H 460 H Phys Exam - Physical Examination Constitutional: NAD seated in hospital bed getting ready to eat lunch HEENT: PERRLA, moist MMs Respiratory: no wheezing, no rales, no rhonchi, clear to auscultation bilateral Cardiovascular: RRR, no significant murmur, no rub Gastrointestinal: soft, non-tender, positive bowel sounds Musculoskeletal: no edema, pulses present Neurological: moves all 4 limbs Psychiatric: normal affect, A&O x 3 Dx/Plan - Plan DKA resolved on SQ insulin with episodic hyperglycemia d/w pt - will try to use a 70/30 regimen not because it is the ideal clinical regimen but because it is currently the most affordable for her as she can access it over the counter as well w/o a rx if she is unable to afford a physician visit c/s CM regarding any resource options for the pt unfortunately, pts medical compliance issues presumably secondary to financial difficulties place her at high risk for readmission and recurrent DKA and chronic diabetic complications diet: diabetic activity: as chris dvt ppx Review of Systems - Medications/Allergies Allergies/Adverse Reactions: Allergies Allergy/AdvReac Type Severity Reaction Status Date / Time No Known Allergies Allergy Verified 05/07/18 11:50 Medications: Current Medications Acetaminophen (Tylenol) 1,000 mg PO Q6H PRN PRN Reason: Mild Pain (1-3) Hydrocodone Bitart/Acetaminophen ([place]ordo 5/325) 1 tab PO Q4H PRN PRN Reason: Moderate Pain (4-6) Last Admin: 05/08/18 04:10 Dose: 1 tab Bisacodyl (Dulcolax) 10 mg PO DAILYPRN PRN PRN Reason: Constipation Clonidine (Catapres) 0.1 mg PO Q4H PRN PRN Reason: SBP >160 ____ Dextrose/Water (Dextrose 50%) 25 gm SLOW IVP PRN PRN PRN Reason: Hypoglycemia Glucagon (Glucagon) 1 mg IM PRN PRN PRN Reason: Hypoglycemia Hydralazine HCl (Apresoline) 10 mg SLOW IVP Q4H PRN PRN Reason: SBP > 180 and HR < 70 Insulin Human Regular 100 (units/ Sodium Chloride) 101 mls @ 0 mls/hr IVPB INF NAYELI; Protocol Last Admin: 05/07/18 21:19 Dose: 101 mls Potassium Chloride 40 meq/ (Sodium Chloride) 270 mls @ 135 mls/hr IVPB ASDIR PRN PRN Reason: FOR SERUM K+ 2.5 - 3.5 Last Admin: 05/08/18 04:53 Dose: 270 mls Potassium Chloride 40 meq/ (Device) 100 mls @ 50 mls/hr IVPB ASDIR PRN PRN Reason: FOR SERUM K+ 2.5 - 3.5 Magnesium Sulfate 1 gm/ Sodium (Chloride) 102 mls @ 102 mls/hr IV PRN PRN PRN Reason: MAG LEVEL 1.4 - 2.0 Magnesium Sulfate 2 gm/ Device 100 mls @ 100 mls/hr IVPB ASDIR PRN PRN Reason: MAGNESIUM < 1.4 Potassium Phosphate 9 mmol/ (Sodium Chloride) 103 mls @ 25.75 mls/hr IVPB ASDIR PRN PRN Reason: Phosphate 1.0-1.8 Potassium Phosphate 12 mmol/ (Sodium Chloride) 254 mls @ 63.5 mls/hr IV ASDIR PRN PRN Reason: Serum phosphate 0.5-0.9 Potassium Phosphate 15 mmol/ (Sodium Chloride) 255 mls @ 63.75 mls/hr IV ASDIR PRN PRN Reason: Serum Phos < 0.5 Dextrose/Water (D5w) 1,000 mls @ 0 mls/hr IV .Q0M PRN PRN Reason: Hypoglycemia Insulin Human Isoph/Insulin Regular (Humulin 70/30) 30 units SC BID NAYELI Last Admin: 05/08/18 10:14 Dose: 30 unit Insulin Human Regular (Humulin R) 0 units SC .MODERATE SLIDING SC PRN PRN Reason: Moderate Correctional Scale Last Admin: 05/08/18 10:54 Dose: 6 unit Magnesium Oxide (Magnesium Oxide) 400 mg PO BIDPRN PRN PRN Reason: FOR SERUM MAG 1.4 - 2.0 Magnesium Oxide (Magnesium Oxide) 800 mg PO PRN PRN PRN Reason: FOR SERUM MAG < 1.4 Miscellaneous Medication (Phos-Nak) 1 pkt PO TIDPRN PRN PRN Reason: FOR PHOS LEVEL 1.0 - 1.8 Miscellaneous Medication (Phos-Nak) 2 pkt PO TIDPRN PRN PRN Reason: FOR PHOS LEVEL 0.5 - 1.0 Nitroglycerin (Nitrostat) 0.4 mg SL Q5MIN PRN PRN Reason: Chest Pain Ccu Electrolyte (Replacement Protocol) 0 each FS PRN PRN PRN Reason: FOR ELECTROLYTE REPLACEMENT Ondansetron HCl (Zofran) 4 mg IVP Q6H PRN PRN Reason: Nausea/Vomiting Potassium Chloride (K-Dur) 40 meq PO ASDIR PRN PRN Reason: FOR SERUM K+ 2.5 - 3.5 Potassium Chloride (Klor-Con) 40 meq PER TUBE ASDIR PRN PRN Reason: FOR SERUM K+ 2.5-3.5 Potassium Chloride (K-Dur) 40 meq PO Q4H [facility] Stop: 05/08/18 12:31 Last Admin: 05/08/18 11:04 Dose: Not Given Senna/Docusate Sodium (Senokot S) 2 tab PO BID PRN PRN Reason: Constipation Sodium Chloride ([place] Nasal [place] 0.65%) 0 ml EA NARE QIDPRN PRN PRN Reason: Nasal Congestion Sodium Chloride (Flush - Normal Saline) 10 ml IVF Q12HR [facility] Last Admin: 05/08/18 10:16 Dose: 10 ml Sodium Chloride (Flush - Normal Saline) 10 ml IVF PRN PRN PRN Reason: Saline Flush
--- NOTE | 2018-05-08 17:02 | PRG ---
DATE OF SERVICE: 05/08/2018 SERVICE: Pulmonary Medicine. INTERVAL HISTORY: The patient is doing really well from a respiratory standpoint. She denies any cu rrent chest pain, fevers, or chills. Her appetite is back. Her gap closed overnight. She remains o n the insulin drip, but is temporarily been interrupted. PHYSICAL EXAMINATION: VITAL SIGNS: Afebrile, pulse 90, blood pressure 144/85, respirations 20, saturation 97% on room air. GENERAL: The patient is awake, alert, no apparent distress. LUNGS: Excellent air entry with no prolonged expiratory phase, wheezing, rhonchi or crackles. HEART: Normal rate, regular. ABDOMEN: Soft, nontender, nondistended. Bowel sounds are positive. MUSCULOSKELETAL: No cyanosis or clubbing. No pitting in the bilateral lower extremities. NEUROLOGIC: Grossly nonfocal. LABORATORY DATA: Blood sugars ranged from 137-317. Potassium 3.4, chloride 112 and gently down tren ding, sodium 136. Creatinine 1.37, also improving. Basic metabolic profile is otherwise unremarkabl e. ASSESSMENT: 1. Diabetic ketoacidosis. 2. Type 2 diabetes mellitus. 3. Medical noncompliance. 4. Acute kidney injury, resolving. DISCUSSION AND PLAN: The patient can be transitioned out of the ICU to the medical unit. We will re introduce her 70/30, interrupt the insulin drip, discontinue IV fluids, provided diet, and also start sliding scale insulin. Her subcu insulin will be titrated up over the next 24-48 hours. I have giv en 80 mEq of potassium this morning. When she leaves the IMCU, she will have no further requirements for inpatient Pulmonary or critical care opinion, and I will sign off. Please call with additional questions or concerns.
[2018-05-09 05:19] LABS: Anion Gap 11 mmol/L (10-20); BUN (Urea Nitrogen) 14 mg/dL (9.8-20.1); Calc. Creatinine Clearance 64 mL/min (70-130); Calcium 9.6 mg/dL (7.8-10.44); Carbon Dioxide 20 mmol/L (22-29); Chloride 108 mmol/L (98-107); Estimated GFR-MDRD 53; Glucose 280 mg/dL (70-105); Potassium 3.7 mmol/L (3.5-5.1); Sodium 135 mmol/L (136-145)
[2018-05-09] MEDS: Insulin Regular 300 UNITS/3 ML VIAL SC PRN ×4 (05:21→20:53)
[2018-05-09] MEDS: Insulin NPH/Reg Insulin Hm 300 UNITS/3 ML VIAL SC SCH ×2 (07:56→20:52)
[2018-05-09] MEDS: Acetaminophen 500 MG TAB PO PRN ×2 (08:01→16:57)
--- NOTE | 2018-05-09 22:14 | PDOC.PN ---
- Subjective Encounter Start Date: 05/09/18 Encounter Start Time: 14:30 Patient seen and examined for DKA. No new complaints. No overnight events - Objective MAR Reviewed: Yes Vital Signs & Weight: Vital Signs (12 hours) Temp Pulse Resp BP Pulse Ox 05/09/18 20:00 98.1 F 85 18 130/86 94 L 05/09/18 17:22 128/85 Weight Weight 180 lb 9.6 oz I&O: 05/08/18 05/09/18 05/10/18 06:59 06:59 06:59 Intake Total 3492.2 2015 1000 Output Total 500 750 Balance 2992.2 1266 1000 Result Diagrams: 05/07/18 10:38 05/09/18 04:04 Additional Labs: Accuchecks 05/09/18 05/09/18 05/09/18 20:52 16:53 11:12 POC Glucose 398 H 282 H 171 H 05/09/18 05/08/18 05/08/18 05:20 22:12 20:35 POC Glucose 218 H 498 H 523 H Phys Exam - Physical Examination Constitutional: NAD Respiratory: no wheezing, no rhonchi Cardiovascular: RRR, no rub Gastrointestinal: soft, positive bowel sounds Musculoskeletal: no edema Dx/Plan - Plan DVT proph w/SCDs 1. DKA/Uncontrolled DM 2 2. BOSSMAN on CKD 3 3. HTN 4. Obesity BMI 31 5. Med noncompliace PLAN: Cont current dose of Humulin 70/30 Cont sliding scale DC in AM if stable Review of Systems - Review of Systems Respiratory: negative: Cough, Dry, Shortness of Breath, Hemoptysis, SOB with Excertion, Pleuritic Pain, Sputum, Wheezing Cardiovascular: negative: chest pain, palpitations, orthopnea, paroxysmal nocturnal dyspnea, edema, light headedness, other - Medications/Allergies Allergies/Adverse Reactions: Allergies Allergy/AdvReac Type Severity Reaction Status Date / Time No Known Allergies Allergy Verified 05/07/18 11:50 Medications: Current Medications Acetaminophen (Tylenol) 1,000 mg PO Q6H PRN PRN Reason: Mild Pain (1-3) Last Admin: 05/09/18 16:57 Dose: 1,000 mg Hydrocodone Bitart/Acetaminophen ([place] 5/325) 1 tab PO Q4H PRN PRN Reason: Moderate Pain (4-6) Last Admin: 05/08/18 04:10 Dose: 1 tab Bisacodyl (Dulcolax) 10 mg PO DAILYPRN PRN PRN Reason: Constipation Clonidine (Catapres) 0.1 mg PO Q4H PRN PRN Reason: SBP >160 ____ Dextrose/Water (Dextrose 50%) 25 gm SLOW IVP PRN PRN PRN Reason: Hypoglycemia Glucagon (Glucagon) 1 mg IM PRN PRN PRN Reason: Hypoglycemia Hydralazine HCl (Apresoline) 10 mg SLOW IVP Q4H PRN PRN Reason: SBP > 180 and HR < 70 Dextrose/Water (D5w) 1,000 mls @ 0 mls/hr IV .Q0M PRN PRN Reason: Hypoglycemia Insulin Human Isoph/Insulin Regular (Humulin 70/30) 30 units SC BID [facility] Last Admin: 05/09/18 20:52 Dose: 30 unit Insulin Human Regular (Humulin R) 0 units SC .AGGRESSIVE SLIDING PRN; Protocol PRN Reason: AGGRESSIVE SLIDING SCALE Last Admin: 05/09/18 16:55 Dose: 9 unit Insulin Human Regular (Humulin R) 0 units SC .BEDTIME SLIDING SC PRN PRN Reason: Bedtime Correctional Scale Last Admin: 05/09/18 20:53 Dose: 5 unit Nitroglycerin (Nitrostat) 0.4 mg SL Q5MIN PRN PRN Reason: Chest Pain Ondansetron HCl (Zofran) 4 mg IVP Q6H PRN PRN Reason: Nausea/Vomiting Senna/Docusate Sodium (Senokot S) 2 tab PO BID PRN PRN Reason: Constipation Sodium Chloride ([place] Nasal [place] 0.65%) 0 ml EA NARE QIDPRN PRN PRN Reason: Nasal Congestion Sodium Chloride (Flush - Normal Saline) 10 ml IVF Q12HR [facility] Last Admin: 05/09/18 21:03 Dose: 10 ml Sodium Chloride (Flush - Normal Saline) 10 ml IVF PRN PRN PRN Reason: Saline Flush
[2018-05-10] MEDS: Insulin Regular 300 UNITS/3 ML VIAL SC PRN ×3 (02:39→11:38)
[2018-05-10] MEDS: Acetaminophen 500 MG TAB PO PRN (02:44)
[2018-05-10] MEDS ORDERED: Insulin NPH/Reg Insulin Hm 300 UNITS/3 ML VIAL SC SCH (08:00)
[2018-05-10 15:14] VITALS: BP 128/88; TEMP 97.8
--- NOTE | 2018-05-11 08:52 | DIS ---
DATE OF ADMISSION: 05/07/2018 DATE OF DISCHARGE: 05/10/2018 DISCHARGE DISPOSITION: Home. FOLLOWUP: Follow up with [facility] in 1 week. ALLERGIES: No known drug allergies. The patient was seen on the day of discharge. Denies any new complaints, no chest pain, shortness of breath, palpitations. DISCHARGE MEDICATIONS: Glyburide 5 mg daily, insulin 70/30 20 units b.i.d., lisinopril 5 mg daily, m etoprolol 25 mg b.i.d. INPATIENT CONSULTANTS: Critical care, Dr. Price. BRIEF HOSPITAL COURSE: The patient is a 58-year-old female with diabetes mellitus type 2, presented to the hospital with lightheadedness, nausea, vomiting, and elevated blood sugar. Her workup was con sistent with diabetic ketoacidosis. Her blood sugar on admission was 644 with creatinine 2.0, bicarb sav of 14 and ketones of 9.36. Please refer to the history and physical for further details. The patient was admitted to the Intermediate Care Unit with a diagnosis of diabetic ketoacidosis. Hermelinda phipps was started on IV fluids with insulin drip. Later on the insulin was changed to 70/30. She also h ad some electrolyte abnormalities which were replaced. She has been started on 70/30 insulin. Renal function has significantly improved. Her creatinine at discharge is 1.27. She was extensively coun seled to be compliant with insulin. Repeat basic metabolic after 1 week is recommended. Primary care physician is advised to follow. FINAL DIAGNOSES: 1. Diabetic ketoacidosis, resolved. 2. Uncontrolled diabetes mellitus type 2 secondary to noncompliance. 3. Acute kidney injury on chronic kidney disease stage 3. 4. Hypertension. 5. Obesity with a BMI of 31. 6. Hypokalemia, replaced. 7. Metabolic acidosis secondary to diabetic ketoacidosis. Plan of care was discussed with the patient in detail. She stated understanding.
== END 2018-05-10 16:07 | disposition home or self-care (01) | DRG 638 ==
LOC: ERS 10:12 → IMCU/EMU 14:16 → T4-B 05-08 12:19
PROVIDERS: ADMIT Internal Medicine; ATTEND Internal Medicine
DX: E11.10 Type 2 diabetes mellitus with ketoacidosis without coma (principal); N17.9 Acute kidney failure, unspecified; E87.2 Acidosis; T38.3X6A Underdosing of insulin and oral hypoglycemic [antidiabetic] drugs, initial encounter; Z91.138 Patient's unintentional underdosing of medication regimen for other reason; E11.22 Type 2 diabetes mellitus with diabetic chronic kidney disease; I12.9 Hypertensive chronic kidney disease with stage 1 through stage 4 chronic kidney disease, or unspecified chronic kidney disease; E86.0 Dehydration; N18.3 Chronic kidney disease, stage 3 (moderate); E66.9 Obesity, unspecified; Z68.31 Body mass index [BMI] 31.0-31.9, adult; E87.6 Hypokalemia
CPT/HCPCS: 36415; 36416; 80048; 80053; 81003; 81015; 82010; 82330; 82803; 83735; 84100; 85025; 96361; 96365; 96374; J1815; J2270; J3480; J7050